=== PATIENT | female | born 1945 | race Caucasian/White ===

== ENCOUNTER 2020-11-22 09:41 | Outpatient (CLI) | payer MEDICARE, SELFPAY ==
--- NOTE | ~2020-11-22 | CT_ITS ---
EXAMINATION: CT sinus wo con DATE: 11/22/2020 10:09 INDICATION: Chronic sinusitis TECHNIQUE: Computed tomography (CT) of the paranasal sinuses was performed without contrast. Iterativ e reconstruction technique was employed. Exam dose: 263.70 mGy-cm total exam DLP. COMPARISON: None FINDINGS: There is minimal rightward bowing of the anterior nasal septum, minimal leftward bowing of the more posterior nasal septum. Mesha bullosa of right middle nasal turbinate. There is prominent soft tissue swelling of the nasal turbinates bilaterally. The ostiomeatal units are patent. Bilateral nasal antral windows are present. There is mild mucoperiosteal thickening of the lower portion of the left maxillary sinus. The paranas al sinuses otherwise are normally developed and aerated. The mastoid air cells are normally developed and aerated. Middle and inner ear apparatus appear unrem arkable bilaterally. IMPRESSION: Mesha bullosa of right middle nasal turbinate Prominent soft tissue swelling of the nasal turbinates bilaterally Bilateral nasal antral windows Mild mucoperiosteal thickening of the lower portion of the left maxillary sinus Reviewed, dictated and finalized at [facility]. Reviewed, dictated and finalized at location [facility]. IO DIRECTOR
== END 2020-11-22 09:42 | disposition home or self-care (01) ==
PROVIDERS: PCP Internal Medicine; Visit Provider Internal Medicine
DX: J32.9 Chronic sinusitis, unspecified (principal); R93.0 Abnormal findings on diagnostic imaging of skull and head, not elsewhere classified
CPT/HCPCS: 70486

== ENCOUNTER 2022-05-04 13:59 | Outpatient (CLI) | payer MEDICARE, SELFPAY ==
--- NOTE | ~2022-05-04 | XR_ITS ---
XR hip RT min 2V DATE: 05/04/2022 14:21 INDICATION: Right hip pain. No injury. TECHNIQUE: AP and lateral views COMPARISON: 11/19/2014 pelvis FINDINGS: There is prominent right hip joint space narrowing and spurring consistent with moderately severe right hip osteoarthritis. Osteopenia. No fracture or dislocation, avascular necrosis or bone destruction of the right hip is detected. IMPRESSION: Osteopenia Moderately severe right hip osteoarthritis Reviewed, dictated and finalized at location A.
== END 2022-05-04 14:00 | disposition home or self-care (01) ==
PROVIDERS: PCP Internal Medicine; Visit Provider Internal Medicine
DX: M16.11 Unilateral primary osteoarthritis, right hip (principal); M85.851 Other specified disorders of bone density and structure, right thigh
CPT/HCPCS: 73502

== ENCOUNTER 2023-09-23 12:45 | Outpatient (CLI) | payer MEDICARE, SELFPAY | END 2023-09-23 12:46 | disposition home or self-care (01) | LOC: ANHAUDIO 12:45 | PROVIDERS: PCP Internal Medicine; Visit Provider Internal Medicine | DX: H90.3 Sensorineural hearing loss, bilateral (principal) | CPT/HCPCS: 92557; 92567 ==

== ENCOUNTER 2023-12-26 14:08 | Outpatient (CLI) | payer MEDICARE, SELFPAY ==
--- NOTE | ~2023-12-26 | XR_ITS ---
EXAMINATION: XR hip BI wo pelvis DATE: 12/26/2023 15:55 INDICATION: Right hip pain. TECHNIQUE: 2 views of right hip and 2 views of left hip were obtained. COMPARISON: Right hip radiographs 05/04/2022 FINDINGS: There is a total left hip arthroplasty in near-anatomic alignment. No fracture. No peripros thetic lucency to suggest loosening or infection. There is heterotopic ossification near left hip. Th ere is severe right hip osteoarthritis. Osteitis pubis is noted. IMPRESSION: 1. Severe right hip osteoarthritis. 2. Total left hip arthroplasty in near-anatomic alignment. Reviewed, dictated and finalized at location E. ER
--- NOTE | ~2023-12-26 | XR_ITS ---
EXAMINATION: XR lumbar spine 2-3V DATE: 12/26/2023 15:55 INDICATION: Dorsalgia, unspecified. TECHNIQUE: 3 views of lumbar spine were obtained. COMPARISON: Lumbar spine radiographs 02/20/2019 FINDINGS: There is 35 degrees levoscoliosis of lumbar spine. There is 3 mm retrolisthesis of L2 on L3 and 5 mm retrolisthesis of L4 on L5. There is 5 mm anterolisthesis of L5 on S1. There are changes of posterior fusion procedure at L3-L4. There is interbody fusion at L3-L4. There is severely decreased disc height at L1-L2, L2-L3, L4-L5, and L5-S1 with endplate remodeling. There is multilevel severe f acet joint osteoarthritis. There is severe right hip osteoarthritis. There is a total left hip arthro plasty. IMPRESSION: 1. Severe lumbar spondylosis, stable from 02/20/2019. 2. Anterior and posterior fusion at L3-L4. 3. Lumbar levoscoliosis. Reviewed, dictated and finalized at location E. E ENGINEER
== END 2023-12-26 14:09 ==
PROVIDERS: Visit Provider Internal Medicine
DX: M54.30 Sciatica, unspecified side (principal); M47.896 Other spondylosis, lumbar region; Z98.1 Arthrodesis status; M16.11 Unilateral primary osteoarthritis, right hip
CPT/HCPCS: 72100; 73521

== ENCOUNTER 2024-07-31 09:30 | Inpatient (IN) | payer MEDICARE, SELFPAY ==
[2024-07-31] VITALS (9 sets, daily range): BP systolic 138–154; BP diastolic 54–94; PULSE 69–80; RESP 13–19; TEMP 36.2–36.9; O2SAT 94–100; BMI 35.2
--- NOTE | ~2024-07-31 | XR_ITS ---
XR chest 1V portable Ordering provider: Judit Lucas PA-C History: 79 years Female with . hyponatremia, recent COVID . Comparison: January 20, 2016 FINDINGS: MEDIASTINUM: The cardiac silhouette is slightly enlarged. Postoperative changes in the mediastinum. LUNGS: No infiltrates, effusions or pneumothorax. Fibrotic and emphysematous changes of the lungs. OTHER: No free air under the diaphragm. IMPRESSION: No acute cardiopulmonary pathology. Reviewed, dictated and finalized at location A.
--- NOTE | ~2024-07-31 | US_ITS ---
EXAMINATION: US venous doppler [facility] DATE: 08/01/2024 11:39 INDICATION: Lower limb edema. TECHNIQUE: Grayscale ultrasound images without and with compression and Doppler ultrasound images of the bilateral lower extremity veins were obtained. COMPARISON: None. FINDINGS: The visualized portions of right common femoral vein, femoral vein, popliteal vein, peroneal veins, p osterior tibial veins, and greater saphenous vein outflow are patent. There is thrombus in right prof unda femoral vein. The visualized portions of left common femoral vein, profunda femoral vein, femoral vein, popliteal v ein, peroneal veins, posterior tibial veins, and greater saphenous vein outflow are patent. IMPRESSION: 1. Deep vein thrombosis involving right profunda femoral vein. Reviewed, dictated and finalized at location A.
--- NOTE | 2024-07-31 09:37 | ECG_ITS ---
Test Date: 2024-07-31 10:15:13 Measurements Intervals [place] Rate: 71 P: 8 TN: 175 QRS: -52 QRSD: 153 T: 124 QT: 447 QTc: 489 Interpretive Statements SINUS RHYTHM LEFT AXIS DEVIATION [QRS AXIS < -30] LEFT BUNDLE BRANCH BLOCK [120+ ms QRS DURATION, 80+ ms Q/S IN V1/V2, 85+ ms R IN I/aVL/V5/V6] ABNORMAL ECG No previous ECG available for comparison Electronically Signed On 07-31-2024 12:36:01 CDT by Greg Adorno M.D.
--- NOTE | 2024-07-31 09:54 | ED.GENADULT ---
HPI - General Adult General Chief complaint: Recheck/Abnormal Lab/Rx <Kashif Mcdonald APRN - Last Filed: 07/31/24 11:02> Stated complaint: ABNORMAL LAB RESULTS <Kashif Mcdonald APRN - Last Filed: 07/31/24 11:02> Time Seen by Provider: 07/31/24 09:32 <Kashif Mcdonald APRN - Last Filed: 07/31/24 11:02> History of Present Illness HPI narrative: 79-year-old female presents with low sodium levels. Patient states she saw her primary care doctor yesterday and had labs done. Patient was called today to come to the ER for low sodium. Patient states she has had 3-4 weeks of nausea, increased confusion, elevated blood pressure, and has been more unsteady on her feet. Patient denies history of low sodium. Patient is on a diuretic but unsure of the name. Patient patient states she has loose stools since 2020. Patient denies chest pain, abdominal pain, no shortness. Patient states her legs have been more swollen than usual. Per lab results patient's sodium was 121 yesterday. <Kashif Mcdonald APRN - Last Filed: 07/31/24 11:02> Onset (ago): day(s) (1) <Kashif Mcdonald APRN - Last Filed: 07/31/24 11:02> Related Data Home medications: Home Medications Medication Instructions Recorded Confirmed Lactobacillus rhamnosus GG 10 1 cap PO DAILY 09/10/19 03/24/24 billion cell capsule (Culturelle) aspirin 81 mg tablet,delayed 81 mg PO DAILY 09/10/19 03/24/24 release (Aspir-Low) ssrqukjilkl-rmozhetxa-dpd C-Mn 500 cap PO 09/10/19 03/24/24 mg-400 mg capsule peg 400-propylene glycol 0.4 %-0.3 1 drop LEFT EYE BID PRN 04/04/20 03/24/24 % eye drops (Systane Ultra) vit C,E,zinc,copper-xghml3f 250 1 cap PO DAILY 04/04/20 03/24/24 mg-lutein 5 mg-zeaxanthin 1 mg capsule (Ocuvite Adult 50 Plus) multivitamin 1 tablet PO DAILY 04/27/20 03/24/24 Vitamin E 400 IU PO BID 07/06/21 03/24/24 acetaminophen 650 mg 650 mg PO DAILY 07/06/21 03/24/24 tablet,extended release ascorbic acid (vitamin C) 500 mg 500 mg PO DAILY 07/06/21 03/24/24 tablet calcium 600 mg (as 1 tablet PO DAILY 07/06/21 03/24/24 carbonate)-vitamin D3 5 mcg (200 unit) tablet guaifenesin 1,200 mg tablet, 1,200 mg PO BID 07/06/21 03/24/24 extended release 12 hr (Mucinex) magnesium 400mg-zinc 15mg PO .once daily 07/06/21 03/24/24 <Kashif Mcdonald APRN - Last Filed: 07/31/24 11:02> Allergies/adverse reactions: Allergies Allergy/AdvReac Type Severity Reaction Status Date / Time oxycodone Allergy Unknown HALLUCINATI Verified 03/24/24 15:16 ONS azithromycin AdvReac Severe NAUSEA Verified 03/24/24 15:16 azelastine AdvReac Mild Other Verified 03/24/24 15:16 diclofenac AdvReac Mild STOMACH Verified 03/24/24 15:16 UPSET erythromycin base AdvReac Mild UPSET Verified 03/24/24 15:16 STOMACH hydrochlorothiazide AdvReac Unknown Hypotension Verified 07/31/24 12:42 azithromycin Allergy Unknown Unknown Uncoded 03/24/24 15:16 diclofenac Allergy Unknown Unknown Uncoded 03/24/24 15:16 erythromycin base Allergy Unknown Unknown Uncoded 03/24/24 15:16 <Kashif Mcdonald APRN - Last Filed: 07/31/24 11:02> Review of Systems Review of Systems: A 10 system review of systems was completed on the patient and is negative except for what is stated in the HPI. Nursing and ancillary documentation was reviewed. Nausea, swelling in legs, weakness, <Kashif Mcdonald APRN - Last Filed: 07/31/24 11:02> [facility] Past Medical History Medical History: Medical History (Updated 07/31/24 @ 11:00 by Kashif Mcdonald APRN) Abnormal EKG Abnormal finding of blood chemistry Benign essential hypertension Blindness of right eye BMI 34.0-34.9,adult BMI 36.0-36.9,adult BMI 37.0-37.9, adult BMI 38.0-38.9,adult BMI 39.0-39.9,adult Body mass index (BMI) 40.0-44.9, adult Cataract Chronic low back pain Colon cancer screening Constipation Cyst of right breast Diarrhea Dizziness Dizziness DJD (degenerative joint disease), multiple sites DM
[2024-07-31] MEDS: SODIUM CHLORIDE 0.9% IV 1,000 ML 150 ML IV CONT (09:55)
[2024-07-31 10:08] LABS: Basophils Percent Auto 0.7 % (0.2-1.2); Eosinophils Absolute Auto 0.1 K/mm3 (0-0.3); Eosinophils Percent Auto 1.8 % (0-4.4); Hematocrit 40.5 % (37.0-47.0); Hemoglobin 13.5 g/dL (12.0-15.0); Immature Granulocyte Absolute 0.04 K/mm3 (0.00-0.031); Immature Granulocyte Percent A 0.7 % (0-0.5); Lymphocytes Absolute Auto 0.78 K/mm3 (0.9-3.2); Lymphocytes Percent Auto 13.9 % (18.3-44.2); Mean Corpuscular HGB Conc 33.3 g/dl (32-36); Mean Corpuscular Hemoglobin 29.5 pg (26-34); Mean Corpuscular Volume 88.6 fl (80-100); Mean Platelet Volume 9.2 fl (7.4-10.4); Monocytes Absolute Auto 0.5 K/mm3 (0.1-0.6); Monocytes Percent Auto 9.4 % (2.6-8.5); Neutrophils Absolute Auto 4.1 K/mm3 (1.3-6.7); Neutrophils Percent Auto 73.5 % (45.5-73.1); Platelet Count Result 257 k/mm3 (150-375); Red Blood Count 4.57 M/mm3 (4.2-5.4); White Blood Count 5.6 K/mm3 (4.5-10.0)
[2024-07-31 10:22] LABS: Alanine Aminotransferase 26 U/L (6-35); Albumin Level 4.5 g/dL (3.5-5.1); Alkaline Phosphatase 87 U/L (38-126); Anion Gap 11 mmol/L (4-12); Aspartate Amino Transferase 27 U/L (14-36); Bilirubin,Total 0.7 mg/dL (0.2-1.3); Blood Urea Nitrogen 17 mg/dL (7-17); Calcium 9.5 mg/dL (8.4-10.2); Carbon Dioxide 24 mmol/L (22-30); Chloride 87 mmol/L (98-107); Estimated Glomerular Filt Rate > 60; Glucose 104 mg/dL (65-110); Sodium 122 mmol/L (137-145)
[2024-07-31 10:23] LABS: Lipase 71 U/L (23-300); Magnesium 1.5 mg/dL (1.6-2.3)
[2024-07-31 10:34] LABS: Troponin I < 0.012 ng/mL (0.000-0.034)
[2024-07-31 11:33] LABS: Add Urine Microscopic? YES; Appearance Urine Clear (Clear); Bacteria Urine None Seen /hpf; Bilirubin Urine Negative (Negative); Blood Urine Negative (Negative); Color Urine Yellow (Yellow); Glucose Urine UA Negative (Negative); Ketones Urine Negative (Negative); Leukocyte Esterase Ur Negative LEU/UL (Negative); Nitrate Urine Negative (Negative); Protein Urine 1+ mg/dL (Negative); RBC Urine 0-2 /hpf (0-2); Specific Grav Ur 1.015 (1.001-1.035); Squamous Epithelial Cell Urine None Seen /hpf (Few); WBC Urine 0-5 /hpf (0-3)
--- NOTE | 2024-07-31 12:20 | ADMGEN ---
This patient, Marilyn Stone, was admitted to Medical Room 251-. Patient/family oriented to hospital policies and general routines including ID bracelet, bed and alarms, visiting hours, pain management, procedures, bathroom and other care routines, personal items, smoking policy, room service/diet, and visiting hours. Information on how to activate the Rapid Response Team has been discussed. Patient/Family are encouraged to report perceived risks to care and to ask questions if they do not understand what they are told or what they should do.
--- NOTE | 2024-07-31 12:40 | PM.IMHP ---
H&P: HPI History of Present Illness Date/Time: 07/31/24 12:40 Chief Complaint: Low sodium levels. Narrative: This is a very pleasant 79-year-old female with hypertension, dyslipidemia, type 2 diabetes mellitus, hypothyroidism, obstructive sleep apnea, gastroesophageal reflux disease, and osteoporosis who presented to the emergency department for evaluation of low sodium levels. The patient provides the following history. She had COVID in early May and feels that she has not gotten back to baseline. About a month later she developed sinusitis for which she took of cefuroxime and doxycycline which unfortunately came along with quite a bit of diarrhea. Her lower extremity edema has worsened and a couple of weeks ago her indapamide dose was doubled with some improvement in swelling although she has been getting up at night to urinate frequently. Unfortunately she still feels weak and fatigued and just not like herself. At time she has mild confusion although it is intermittent and without pattern. Her appetite has been good and she denies nausea and vomiting. Diarrhea has resolved. She has not had lightheadedness, dizziness, vertigo, fever, chills, sweats, sore throat, cough, chest pain, pleuritic pain, orthopnea, paroxysmal nocturnal dyspnea, palpitations, and calf pain. Yesterday she had routine labs and received a call today that she had to come to the ED as her sodium was 121. With further questioning she has no known history of hyponatremia however it looks like she has chronic hyponatremia in the low 130s. She recently had her indapamide dose increased as above but denies other medication changes. She drinks up to 36 oz of fluid a day but usually lasts. She denies alcohol use. No history of malignancy, cirrhosis, congestive heart failure, or lung disease. In the ED: Vital signs were stable on arrival. Labs were significant for sodium of 122, chloride 87, magnesium 1.5. EKG showed sinus rhythm with left axis deviation and chronic left bundle-branch block. She is being admitted in this setting for further treatment and evaluation. Review of Systems Review of Systems: 12 systems were reviewed and are negative except for as per HPI. [facility] Past Medical History Medical History Anxiety and depression Benign essential hypertension Blindness of right eye Chronic hyponatremia Chronic low back pain Degenerative joint disease Gastroesophageal reflux disease Hearing loss Hyperlipidemia Hypothyroidism Left bundle branch block Obstructive sleep apnea on CPAP On terminal carman drug therapy Osteoporosis Spinal stenosis Type 2 diabetes mellitus Vitamin D deficiency Surgical History Surgical History History of aortic valve replacement with tissue graft History of back surgery History of cataract extraction History of detached retina repair History of hand surgery History of left hip replacement History of partial thyroidectomy History of sinus surgery History of total left knee replacement Family History Family History Mother Diabetes mellitus Family history of arthritis Family history of congestive heart failure Hypertension Cerebrovascular accident Grandparent Family history of malignant neoplasm of breast Cerebrovascular accident Father Family history of malignant neoplasm of kidney Family history of arthritis Family history of lung cancer Grandparent Breast cancer Social History Social History (Updated 07/31/24 @ 22:58 by Judit Lucas PA-C) Social History: Healthcare power of superintendent production: Sandor Rueda ([phone]). Code status: Full code. Smoking status: Never smoker Second hand tobacco smoke exposure: No Alcohol intake: never Substance use: never Do You Feel Safe in your Home?: Yes Lack of Transportation: No Lack of Food: Nev
[2024-07-31 17:04] LABS: Sodium Urine Random 95 meq/L
[2024-07-31 17:14] LABS: Urea Random Urine 289 MG/DL
[2024-07-31 17:15] LABS: Creatinine Urine 28.9 mg/dL
[2024-07-31] MEDS: PREGABALIN (*CRX) 75 MG CAPSULE PO (17:23)
[2024-07-31] MEDS: CALCIUM/VITAMIN D 500 MG/5 MCG (200 I.U.) TABLET PO (17:23)
[2024-07-31 17:42] LABS: Glucose Point of Care 176 mg/dl (65-105)
[2024-07-31 20:06] LABS: Glucose Point of Care 92 mg/dl (65-105)
[2024-07-31] MEDS: MAGNESIUM SULF 2 GM/WATER 50ML 2 GM/50 ML BAG IVPB (20:36)
[2024-07-31] MEDS: ATORVASTATIN 10 MG TABLET BY MOUTH (20:42)
[2024-07-31] MEDS: guaiFENesin 12 HR 600 MG TABCR 1200 MG PO (20:42)
[2024-07-31] MEDS: CALCITONIN NASAL 200 UNITS/SPRAY 3.7 ML BOTTLE 1 SPRAY NASAL (20:44)
[2024-07-31] MEDS: FLUTICASONE PROPIONATE 0.05% NA SPR 16 GM BTL (*BKC) 2 SPRAY NASAL (20:45)
[2024-07-31 22:46] LABS: Magnesium 2.2 mg/dL (1.6-2.3)
[2024-07-31 23:59] LABS: Anion Gap 9 mmol/L (4-12); Blood Urea Nitrogen 15 mg/dL (7-17); Calcium 9.3 mg/dL (8.4-10.2); Carbon Dioxide 23 mmol/L (22-30); Chloride 90 mmol/L (98-107); Estimated CRCL calculation 58 ml/min; Estimated Glomerular Filt Rate > 60; Glucose 102 mg/dL (65-110); Potassium 4.1 mmol/L (3.4-5.0); Sodium 122 mmol/L (137-145)
[2024-08-01] VITALS (8 sets, daily range): BP systolic 117–155; BP diastolic 48–65; PULSE 66–74; RESP 16–18; TEMP 36.1–36.9; O2SAT 94–98
[2024-08-01 05:43] LABS: Anion Gap 7 mmol/L (4-12); Blood Urea Nitrogen 14 mg/dL (7-17); Calcium 9.6 mg/dL (8.4-10.2); Carbon Dioxide 25 mmol/L (22-30); Chloride 91 mmol/L (98-107); Estimated CRCL calculation 66 ml/min; Estimated Glomerular Filt Rate > 60; Glucose 101 mg/dL (65-110); Magnesium 1.8 mg/dL (1.6-2.3); Potassium 4.2 mmol/L (3.4-5.0); Sodium 123 mmol/L (137-145)
[2024-08-01] MEDS: LEVOTHYROXINE SODIUM 125 MCG TABLET BY MOUTH (06:02)
[2024-08-01 07:29] LABS: Glucose Point of Care 117 mg/dl (65-105)
[2024-08-01] MEDS: MULTIVITAMINS THERAPEUTIC TAB (*BKC) 1 TABLET PO (08:25)
[2024-08-01] MEDS: PREGABALIN (*CRX) 75 MG CAPSULE PO ×2 (08:25→16:02)
[2024-08-01] MEDS: OPTI-GEN TAB 1 TABLET PO (08:25)
[2024-08-01] MEDS: ASPIRIN 81 MG ENTERIC TABLET PO (08:25)
[2024-08-01] MEDS: ASCORBIC ACID 500 MG TABLET PO (08:25)
[2024-08-01] MEDS: ACIDOPHILUS/BULGARICUS CHEWABLE TABLET 1 TABLET BY MOUTH (08:25)
[2024-08-01] MEDS: CALCIUM/VITAMIN D 500 MG/5 MCG (200 I.U.) TABLET PO ×2 (08:25→16:02)
[2024-08-01] MEDS: MAGNESIUM OXIDE 400 MG TABLET PO (08:25)
[2024-08-01] MEDS: LOSARTAN POTASSIUM 100 MG TABLET PO (08:25)
[2024-08-01] MEDS: ENOXAPARIN 40 MG/0.4 ML SYRINGE SUB-Q (08:26)
[2024-08-01 12:19] LABS: Glucose Point of Care 104 mg/dl (65-105)
--- NOTE | 2024-08-01 13:44 | WPDPN ---
Progress Note: A&P Assessment and Plan (1) Hyponatremia: Code(s): E87.1 - Hypo-osmolality and hyponatremia Status: Acute (2) Hypomagnesemia: Code(s): E83.42 - Hypomagnesemia Status: Acute (3) Bilateral edema of lower extremity: Code(s): R60.0 - Localized edema Status: Acute (4) Benign essential hypertension: Code(s): I10 - Essential (primary) hypertension Status: Acute (5) Gastroesophageal reflux disease: Code(s): K21.9 - Gastro-esophageal reflux disease without esophagitis Status: Acute (6) Hypothyroidism: Code(s): E03.9 - Hypothyroidism, unspecified Status: Acute (7) Obstructive sleep apnea on CPAP: Code(s): G47.33 - Obstructive sleep apnea (adult) (pediatric) Status: Acute (8) Type 2 diabetes mellitus: Code(s): E11.9 - Type 2 diabetes mellitus without complications Status: Acute Plan The patient presented to the emergency department for evaluation after she was found to have low sodium level on labs as detailed in HPI. Labs, imaging, EKG, and all reports were personally reviewed. She has chronic, mild hyponatremia and it looks like her sodium typically runs in the low 130s. Risk factors for hyponatremia include medications (indapamide, esomeprazole) and medical conditions (hypothyroidism, diabetes). She appears euvolemic and is euglycemic at this time. Check urine sodium and urea, urine and serum osmolalities, and TSH. Hold IV fluids pending these investigations as I suspect it will correct by simply holding indapamide and esomeprazole. May need to consider fluid restriction depending on how the sodium trends. Magnesium is also low, possibly related to PPI, and will be replaced. She continues to have quite a bit of lower extremity swelling, in part from dependent edema and sedentary lifestyle. She was encouraged to elevate her legs above the heart as often as possible. Jeff hatfield ordered. Consider loop diuretic for edema once her sodium has improved. Echocardiogram ordered to assess cardiac function. Lower extremity venous ultrasounds have been ordered to rule out DVT. Blood pressures were reviewed and they have been running a bit high and will be monitored closely. CPAP will be provided for the patient to use while hospitalized. Initiate sliding scale insulin, Accu-Cheks, and hypoglycemic protocol. Recent hemoglobin A1c was 6.3%. Her home medications will be reviewed and resumed as appropriate. Findings and treatment plan were discussed with the patient. Questions were solicited and answered to satisfaction. The patient's medical management will be taken over by the hospitalist team in a.m. 79 y/o female admitted with hyponeatremia suspect 2/2 indapamide which was recently double due to lower extremities edema, patient is placed on fluid restriction and her sodium is trending up it is 123 today compare to 122 upon arrival, patient with c/o lower extremities edema concerning for CHF, cardiac ECHO showed preserved EF of 55%,and grade I diastolic dysfunction, patient is placed on fluids restriction may help with edema, also complaints Rt lower extremity swelling and pain, venous Doppler showed DVT involving right profunda femoral vein most likely due sedentary life patient is started on Eliquis Subjective Date/time seen: 08/01/24 13:44 Interval history: 79 y/o female admitted with hyponeatremia suspect 2/2 indapamide which was recently double due to lower extremities edema, patient is placed on fluid restriction and her sodium is trending up it is 123 today compare to 122 upon arrival, patient with c/o lower extremities edema concerning for CHF, cardiac ECHO showed preserved EF of 55%,and grade I diastolic dysfunction, patient is placed on fluids restriction may help with edema, also complaints Rt lower extremity swelling and pain, venous Doppler showed DVT involving right profunda femoral vein most likely due sedentary life patient is started on El
--- NOTE | 2024-08-01 14:47 | PCOTNOTE ---
Attempted OT evaluation. DVT found 08/01/24, will hold occupational therapy services till appropriate. Will follow.
--- NOTE | 2024-08-01 14:50 | PM.CNNEP ---
Assessment and Plan Assessment and plan (1) Hyponatremia: Code(s): E87.1 - Hypo-osmolality and hyponatremia Status: Acute Assessment and Plan: The patient has hyponatremia. This has been going off and on for many years. Things that cause hyponatremia include: Cancer. However if she had cancer for 15 years I think we would have known about this. 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 Can not see that she has had a CT scan of her head but she has no neurologic symptoms. Because the sodium is not coming up with stopping the indapamide we should get a CT brain. Pulmonary issues. Her chest x-ray is unremarkable and she has no pulmonary disease. Hormones. The TSH is okay. Will check a cortisol level. Pseudo hyponatremia from paraproteins. Will check an SPEP. Meds the patient is on omeprazole and indapamide both of which can lower the sodium. She says that she has not had any symptoms of GERD since being off the omeprazole this admission so I will just start Pepcid. Hopefully this will control her GERD. The patient was on indapamide. This may have led to the lower sodium. This has been discontinued. To treat this will stop the on omeprazole, and enhance fluid restriction [id number]. Will also add Lasix plus salt tabs to help bring the sodium level up. Will check a cortisol level and an SPEP. (2) Benign essential hypertension: Code(s): I10 - Essential (primary) hypertension Status: Acute Assessment and Plan: Blood pressure is under good control (3) Hyperlipidemia: Qualifiers: Hyperlipidemia type: mixed hyperlipidemia Qualified Code(s): E78.2 - Mixed hyperlipidemia Code(s): E78.5 - Hyperlipidemia, unspecified Status: Acute Assessment and Plan: The patient is on atorvastatin. Will check a total cholesterol (4) DM type 2 (diabetes mellitus, type 2): Qualifiers: Diabetes mellitus complication status: without complication Diabetes mellitus halfway insulin use: without vermin exterminator use Qualified Code(s): E11.9 - Type 2 diabetes mellitus without complications Code(s): E11.9 - Type 2 diabetes mellitus without complications Status: Acute Assessment and Plan: Management per hospitalists (5) SUE on CPAP: Code(s): G47.33 - Obstructive sleep apnea (adult) (pediatric); Z99.89 - Dependence on other enabling machines and devices Status: Acute Assessment and Plan: She uses a CPAP machine at home (6) GERD (gastroesophageal reflux disease): Qualifiers: Esophagitis presence: esophagitis presence not specified Qualified Code(s): K21.9 - Gastro-esophageal reflux disease without esophagitis Code(s): K21.9 - Gastro-esophageal reflux disease without esophagitis Status: Acute Assessment and Plan: Will change from omeprazole to Pepcid History of Present Illness Reason for Consult Consult date: 08/01/24 Chief Complaint Chief complaint: Hyponatremia History of Present Illness Narrative: Marilyn is a very pleasant 79-year-old lady who sees Dr. Tomlin in the office.. The patient had hyperlipidemia, GERD on omeprazole, chronic seasonal allergies, degenerative joint disease, hypothyroidism, diabetes, peripheral neuropathy. Patient also has chronic hyponatremia. If sodium is been low since 2008. At that time she had a very low sodium. She was in the emergency room and sodium was in 113-119 range. There are no notes describing how that was treated but she was discharged. Since then her sodium has ranged from the high 120s to low normal. She says that she was never aware of her low sodium and that she has never had an official workup. The patient denies any cancer. She has no lung disease. No history of strokes or brain tumors. She does take indapamide. She does not take narcotics, antidepressants, but does take omeprazole. Before February, her sodium was mildly low, twice in February it was a little bit lower and when she came into the
--- NOTE | 2024-08-01 15:09 | PCPTNOTE ---
attempted PT eval, according to pt's chart she has a recent DVT found today, waiting for 24 hours on blood thinners, will follow
[2024-08-01] MEDS: APIXABAN 5 MG TABLET 10 MG PO (16:02)
[2024-08-01] MEDS: SODIUM CHLORIDE 1 GM TABLET PO (16:02)
[2024-08-01] MEDS: FUROSEMIDE 20 MG TABLET PO (16:02)
[2024-08-01 17:45] LABS: Glucose Point of Care 94 mg/dl (65-105)
[2024-08-01 20:44] LABS: Glucose Point of Care 141 mg/dl (65-105)
[2024-08-01] MEDS: guaiFENesin 12 HR 600 MG TABCR 1200 MG PO (21:00)
[2024-08-01] MEDS: ATORVASTATIN 10 MG TABLET BY MOUTH (21:00)
[2024-08-01] MEDS: FAMOTIDINE 20 MG TABLET PO (21:00)
[2024-08-01] MEDS: CALCITONIN NASAL 200 UNITS/SPRAY 3.7 ML BOTTLE 1 SPRAY NASAL (21:01)
[2024-08-01] MEDS: FLUTICASONE PROPIONATE 0.05% NA SPR 16 GM BTL (*BKC) 2 SPRAY NASAL (21:03)
[2024-08-01 22:12] LABS: Thyroid Stimulating Hormone Reflex 0.522 uIU/mL (0.465-4.68)
--- NOTE | 2024-08-01 23:02 | ECHO_ITS ---
Patient Info Name: Marilyn Stone Age: 79 years : 1945 Gender: Female Ht: 62 in Wt: 210 lbs BSA: 2.09 m2 HR: 71 bpm BP: 151 / 58 mmHg Heart Rhythm: Sinus Rhythm Technical Quality: Good Exam Date: 08/01/2024 8:15 AM Exam Location: Echo Lab Patient Status: Inpatient Admit Date: 07/31/2024 Staff Ordering Physician: Judit Lucas PA-C Chronograph Operator: Marcus France RDCS Attending Provider: Tato Arroyo MD Referring Physician: Shayy VENTURA; Exam Type: CA echo doppler color flow Study Info Indications - EDEMA, HTN Complete two-dimensional, color flow and Doppler transthoracic echocardiogram is performed. Summary 1. Complete two-dimensional, color flow and Doppler transthoracic echocardiogram is performed. 2. Left ventricular systolic function is normal, estimated at 50-55%. 3. There is moderately increased left ventricular wall thickness. 4. The left ventricular diastolic function is grade I diastolic dysfunction. 5. There is mild tricuspid valve regurgitation. 6. Mild pulmonary hypertension, estimated pulmonary arterial systolic pressure is 44 mmHg. 7. Bioprosthetic aortica valve. No aortic regurgitation. Mean gradient across aortic valve 12 mmHg. DVI 0.4. Left Ventricle Left ventricular chamber dimension is normal. Left ventricular systolic function is normal, estimated at 50-55%. There is moderately increased left ventricular wall thickness. Left ventricular septal wall motion is normal. The left ventricular diastolic function is grade I diastolic dysfunction. Right Ventricle Right ventricular chamber dimension is normal. Right ventricular systolic function is normal. Left Atria Left atrial chamber dimension is normal. Right Atria Right atrial chamber dimension is normal. Aortic Valve The not well visualized prosthetic aortic valve is not well visualized. There is no sclerosis of the not well visualized prosthetic aortic valve leaflets. There is no regurgitation of the not well visualized prosthetic aortic valve. Pulmonic Valve The pulmonic valve is normal. There is no pulmonic valve stenosis. There is no pulmonic regurgitation. Mitral Valve The mitral valve has normal leaflets. There is no mitral valve stenosis. There is no mitral valve regurgitation. The mitral valve annulus is mildly calcified. Tricuspid Valve The tricuspid valve leaflets are normal. There is no significant tricuspid valve stenosis. There is mild tricuspid valve regurgitation. Mild pulmonary hypertension, estimated pulmonary arterial systolic pressure is 44 mmHg. Pericardium/Pleural The pericardium appears normal. There is no pericardial effusion. Aorta The aortic root size at the sinus of Valsalva is normal. The prox ascending aorta size is normal. Left Ventricular Outflow Tract Name Value Normal LVOT 2D LVOT Diameter 1.8 cm LVOT Doppler LVOT Peak Gradient 2 mmHg LVOT Mean Gradient 2 mmHg LVOT VTI 19 cm LVOT VTI/AV VTI Ratio 0.4 LVOT Stroke Volume 50 ml LVOT CO 3.5 l/min LVOT
[2024-08-02] VITALS (9 sets, daily range): BP systolic 129–166; BP diastolic 47–99; PULSE 58–78; RESP 14–22; TEMP 36.2–36.7; O2SAT 93–98
[2024-08-02] MEDS: LEVOTHYROXINE SODIUM 125 MCG TABLET BY MOUTH (06:07)
[2024-08-02 06:09] LABS: Hematocrit 36.9 % (37.0-47.0); Hemoglobin 12.1 g/dL (12.0-15.0); Mean Corpuscular HGB Conc 32.8 g/dl (32-36); Mean Corpuscular Hemoglobin 29.2 pg (26-34); Mean Corpuscular Volume 88.9 fl (80-100); Mean Platelet Volume 9.6 fl (7.4-10.4); Platelet Count Result 225 k/mm3 (150-375); Red Blood Count 4.15 M/mm3 (4.2-5.4); Red Cell Distribution Width 14.2 % (11.5-14.5); White Blood Count 5.8 K/mm3 (4.5-10.0)
[2024-08-02 06:13] LABS: Albumin Level 3.8 g/dL (3.5-5.1); Anion Gap 8 mmol/L (4-12); Blood Urea Nitrogen 20 mg/dL (7-17); Calcium 9.5 mg/dL (8.4-10.2); Carbon Dioxide 24 mmol/L (22-30); Chloride 92 mmol/L (98-107); Estimated CRCL calculation 51 ml/min; Estimated Glomerular Filt Rate > 60; Glucose 99 mg/dL (65-110); Magnesium 1.6 mg/dL (1.6-2.3); Phosphorus 3.9 mg/dL (2.5-4.5); Potassium 4.2 mmol/L (3.4-5.0); Sodium 124 mmol/L (137-145)
--- NOTE | 2024-08-02 08:11 | PM.PNNEP ---
Progress Note: A&P Assessment and Plan (1) Hyponatremia: Code(s): E87.1 - Hypo-osmolality and hyponatremia Status: Acute Assessment and Plan: The patient has hyponatremia. This has been going off and on for many years. Serum and urine osmolality pending. SPEP pending. Cortisol level was only 10.6. Will check a Cortrosyn stim test. Things that cause hyponatremia include: Cancer. However if she had cancer for 15 years I think we would have known about this. 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 Can not see that she has had a CT scan of her head but she has no neurologic symptoms. Because the sodium is not coming up with stopping the indapamide we should get a CT brain. Pulmonary issues. Her chest x-ray is unremarkable and she has no pulmonary disease. Hormones. The TSH is okay. Cortisol level a little low. Check a Cortrosyn stim test. Pseudo hyponatremia from paraproteins. SPEP pending Meds the patient is on omeprazole and indapamide both of which can lower the sodium. These have both been discontinued.. Currently the patient is on fluid restriction of 1200cc, Lasix 20mg twice a day and sodium chloride 1g twice a day. Sodium level is up a little bit to 124. Will continue the same dose. Check the Cortrosyn stim test. Check a sodium at 4:00 p.m. and in the morning. Assuming a Cortrosyn stim test is negative, if the sodium still does not move very much by tomorrow then consider around 3% saline? (2) Benign essential hypertension: Code(s): I10 - Essential (primary) hypertension Status: Acute Assessment and Plan: Systolic blood pressure running in the 120s to 150s. Add a small dose of amlodipine (3) Hyperlipidemia: Qualifiers: Hyperlipidemia type: mixed hyperlipidemia Qualified Code(s): E78.2 - Mixed hyperlipidemia Code(s): E78.5 - Hyperlipidemia, unspecified Status: Acute Assessment and Plan: The patient is on atorvastatin. Will check a total cholesterol (4) DM type 2 (diabetes mellitus, type 2): Qualifiers: Diabetes mellitus halfway insulin use: without halfway use Diabetes mellitus complication status: without complication Qualified Code(s): E11.9 - Type 2 diabetes mellitus without complications Code(s): E11.9 - Type 2 diabetes mellitus without complications Status: Acute Assessment and Plan: Management per hospitalists (5) SUE on CPAP: Code(s): G47.33 - Obstructive sleep apnea (adult) (pediatric); Z99.89 - Dependence on other enabling machines and devices Status: Acute Assessment and Plan: She uses a CPAP machine at home (6) GERD (gastroesophageal reflux disease): Qualifiers: Esophagitis presence: esophagitis presence not specified Qualified Code(s): K21.9 - Gastro-esophageal reflux disease without esophagitis Code(s): K21.9 - Gastro-esophageal reflux disease without esophagitis Status: Acute Assessment and Plan: Will change from omeprazole to Pepcid Subjective Date/time seen: 08/02/24 08:11 Interval history: Patient feels okay. Sitting up in a chair. No chest pain or shortness of breath Review of Systems Cardiovascular: Cardiovascular: Reports no additional cardiovascular complaints Respiratory: Respiratory: Reports no additional respiratory complaints Gastrointestinal: Gastrointestinal: Reports no additional gastrointestinal complaints Genitourinary: Genitourinary: Reports no additional female genitourinary complaints Exam Narrative: WDWN in NAD skin no rash head ncat lungs clear cor reg no rub abd BS+ nontender and soft ext 1+ edema on the right and trace edema on the left. Objective Data Vital Signs Vital Signs: Vital Signs - 24 hr 08/01/24 08:47 08/01/24 12:00 08/01/24 16:00 Temperature 97.8 F 97 F L Pulse Rate 70 74 Respiratory Rate 16 16 Blood Pressure 128/52 L 155/65 H Pulse Oximetry 94 98 96 Oxygen Delivery Room Air
[2024-08-02 08:13] LABS: Glucose Point of Care 102 mg/dl (65-105)
[2024-08-02] MEDS: ACIDOPHILUS/BULGARICUS CHEWABLE TABLET 1 TABLET BY MOUTH (08:39)
[2024-08-02] MEDS: ASCORBIC ACID 500 MG TABLET PO (08:39)
[2024-08-02] MEDS: ASPIRIN 81 MG ENTERIC TABLET PO (08:39)
[2024-08-02] MEDS: APIXABAN 5 MG TABLET 10 MG PO ×2 (08:39→20:29)
[2024-08-02] MEDS: LOSARTAN POTASSIUM 100 MG TABLET PO (08:40)
[2024-08-02] MEDS: MULTIVITAMINS THERAPEUTIC TAB (*BKC) 1 TABLET PO (08:40)
[2024-08-02] MEDS: FUROSEMIDE 20 MG TABLET PO ×2 (08:40→17:01)
[2024-08-02] MEDS: PREGABALIN (*CRX) 75 MG CAPSULE PO ×2 (08:40→16:59)
[2024-08-02] MEDS: MAGNESIUM OXIDE 400 MG TABLET PO (08:40)
[2024-08-02] MEDS: OPTI-GEN TAB 1 TABLET PO (08:40)
[2024-08-02] MEDS: CALCIUM/VITAMIN D 500 MG/5 MCG (200 I.U.) TABLET PO ×2 (08:40→16:58)
[2024-08-02] MEDS: FAMOTIDINE 20 MG TABLET PO ×2 (08:40→20:29)
[2024-08-02] MEDS: SODIUM CHLORIDE 1 GM TABLET PO ×2 (08:40→17:01)
[2024-08-02] MEDS: amLODIPine BESYLATE 2.5 MG TABLET PO (08:46)
[2024-08-02] MEDS: COSYNTROPIN 0.25 MG/ML VIAL IV PUSH (09:14)
[2024-08-02 09:26] LABS: Cortisol Baseline 9.26 ug/dL
[2024-08-02 12:03] LABS: Glucose Point of Care 150 mg/dl (65-105)
--- NOTE | 2024-08-02 14:24 | WPDPN ---
Progress Note: A&P Assessment and Plan (1) Hyponatremia: Code(s): E87.1 - Hypo-osmolality and hyponatremia Status: Acute (2) Hypomagnesemia: Code(s): E83.42 - Hypomagnesemia Status: Acute (3) Bilateral edema of lower extremity: Code(s): R60.0 - Localized edema Status: Acute (4) Benign essential hypertension: Code(s): I10 - Essential (primary) hypertension Status: Acute (5) Gastroesophageal reflux disease: Code(s): K21.9 - Gastro-esophageal reflux disease without esophagitis Status: Acute (6) Hypothyroidism: Code(s): E03.9 - Hypothyroidism, unspecified Status: Acute (7) Obstructive sleep apnea on CPAP: Code(s): G47.33 - Obstructive sleep apnea (adult) (pediatric) Status: Acute (8) Type 2 diabetes mellitus: Code(s): E11.9 - Type 2 diabetes mellitus without complications Status: Acute Plan The patient presented to the emergency department for evaluation after she was found to have low sodium level on labs as detailed in HPI. Labs, imaging, EKG, and all reports were personally reviewed. She has chronic, mild hyponatremia and it looks like her sodium typically runs in the low 130s. Risk factors for hyponatremia include medications (indapamide, esomeprazole) and medical conditions (hypothyroidism, diabetes). She appears euvolemic and is euglycemic at this time. Check urine sodium and urea, urine and serum osmolalities, and TSH. Hold IV fluids pending these investigations as I suspect it will correct by simply holding indapamide and esomeprazole. May need to consider fluid restriction depending on how the sodium trends. Magnesium is also low, possibly related to PPI, and will be replaced. She continues to have quite a bit of lower extremity swelling, in part from dependent edema and sedentary lifestyle. She was encouraged to elevate her legs above the heart as often as possible. Jeff hatfield ordered. Consider loop diuretic for edema once her sodium has improved. Echocardiogram ordered to assess cardiac function. Lower extremity venous ultrasounds have been ordered to rule out DVT. Blood pressures were reviewed and they have been running a bit high and will be monitored closely. CPAP will be provided for the patient to use while hospitalized. Initiate sliding scale insulin, Accu-Cheks, and hypoglycemic protocol. Recent hemoglobin A1c was 6.3%. Her home medications will be reviewed and resumed as appropriate. Findings and treatment plan were discussed with the patient. Questions were solicited and answered to satisfaction. The patient's medical management will be taken over by the hospitalist team in a.m. 79 y/o female admitted with hyponeatremia suspect 2/2 indapamide which was recently double due to lower extremities edema, patient is placed on fluid restriction and her sodium is trending up it is 124 today compare to 122 upon arrival, patient with c/o lower extremities edema concerning for CHF, cardiac ECHO showed preserved LV function with EF of 55%,and grade I diastolic dysfunction, patient is placed on fluids restriction may help with edema, also complained of Rt lower extremity swelling and pain, venous Doppler showed DVT involving right profunda femoral vein most likely due sedentary life patient is started on Eliquis Subjective Date/time seen: 08/02/24 14:24 Interval history: 79 y/o female admitted with hyponeatremia suspect 2/2 indapamide which was recently double due to lower extremities edema, patient is placed on fluid restriction and her sodium is trending up it is 124 today compare to 122 upon arrival, patient with c/o lower extremities edema concerning for CHF, cardiac ECHO showed preserved LV function with EF of 55%,and grade I diastolic dysfunction, patient is placed on fluids restriction may help with edema, also complained of Rt lower extremity swelling and pain, venous Doppler showed DVT involving right profunda femoral vein most likely due
[2024-08-02 16:23] LABS: Anion Gap 11 mmol/L (4-12); Blood Urea Nitrogen 19 mg/dL (7-17); Calcium 9.8 mg/dL (8.4-10.2); Carbon Dioxide 23 mmol/L (22-30); Chloride 91 mmol/L (98-107); Estimated CRCL calculation 58 ml/min; Estimated Glomerular Filt Rate > 60; Glucose 201 mg/dL (65-110); Potassium 4.2 mmol/L (3.4-5.0); Sodium 125 mmol/L (137-145)
[2024-08-02 17:24] LABS: Glucose Point of Care 143 mg/dl (65-105)
[2024-08-02] MEDS: FLUTICASONE PROPIONATE 0.05% NA SPR 16 GM BTL (*BKC) 2 SPRAY NASAL (20:28)
[2024-08-02] MEDS: CALCITONIN NASAL 200 UNITS/SPRAY 3.7 ML BOTTLE 1 SPRAY NASAL (20:28)
[2024-08-02] MEDS: ATORVASTATIN 10 MG TABLET BY MOUTH (20:29)
[2024-08-02] MEDS: guaiFENesin 12 HR 600 MG TABCR 1200 MG PO (20:29)
[2024-08-02 20:37] LABS: Glucose Point of Care 160 mg/dl (65-105)
[2024-08-03 02:10] VITALS: PULSE 66; RESP 16; O2SAT 96
[2024-08-03 04:00] VITALS: BP 162/91; PULSE 73; RESP 20; TEMP 36.4; O2SAT 99
[2024-08-03] MEDS: LEVOTHYROXINE SODIUM 125 MCG TABLET BY MOUTH (05:49)
[2024-08-03 06:26] LABS: Hematocrit 35.2 % (37.0-47.0); Hemoglobin 11.6 g/dL (12.0-15.0); Mean Corpuscular Hemoglobin 29.4 pg (26-34); Mean Corpuscular Volume 89.3 fl (80-100); Mean Platelet Volume 9.3 fl (7.4-10.4); Platelet Count Result 224 k/mm3 (150-375); Red Blood Count 3.94 M/mm3 (4.2-5.4); Red Cell Distribution Width 14.2 % (11.5-14.5); White Blood Count 6.7 K/mm3 (4.5-10.0)
[2024-08-03 06:44] LABS: Albumin Level 3.8 g/dL (3.5-5.1); Anion Gap 9 mmol/L (4-12); Blood Urea Nitrogen 18 mg/dL (7-17); Calcium 9.6 mg/dL (8.4-10.2); Carbon Dioxide 23 mmol/L (22-30); Chloride 94 mmol/L (98-107); Estimated CRCL calculation 59 ml/min; Estimated Glomerular Filt Rate > 60; Glucose 100 mg/dL (65-110); Magnesium 1.6 mg/dL (1.6-2.3); Potassium 3.9 mmol/L (3.4-5.0); Sodium 126 mmol/L (137-145)
[2024-08-03 06:46] LABS: Cholesterol 142 mg/dL (0-200)
[2024-08-03 08:06] LABS: Glucose Point of Care 97 mg/dl (65-105)
[2024-08-03 08:16] VITALS: BP 154/59; PULSE 69; RESP 98; TEMP 36.4; O2SAT 98
[2024-08-03] MEDS: ACIDOPHILUS/BULGARICUS CHEWABLE TABLET 1 TABLET BY MOUTH (08:21)
[2024-08-03] MEDS: amLODIPine BESYLATE 2.5 MG TABLET PO (08:22)
[2024-08-03] MEDS: APIXABAN 5 MG TABLET 10 MG PO (08:22)
[2024-08-03] MEDS: MULTIVITAMINS THERAPEUTIC TAB (*BKC) 1 TABLET PO (08:23)
[2024-08-03] MEDS: CALCIUM/VITAMIN D 500 MG/5 MCG (200 I.U.) TABLET PO ×2 (08:23→17:32)
[2024-08-03] MEDS: FUROSEMIDE 20 MG TABLET PO ×2 (08:23→17:34)
[2024-08-03] MEDS: FAMOTIDINE 20 MG TABLET PO (08:23)
[2024-08-03] MEDS: ASCORBIC ACID 500 MG TABLET PO (08:23)
[2024-08-03] MEDS: ASPIRIN 81 MG ENTERIC TABLET PO (08:23)
[2024-08-03] MEDS: LOSARTAN POTASSIUM 100 MG TABLET PO (08:23)
[2024-08-03] MEDS: OPTI-GEN TAB 1 TABLET PO (08:24)
[2024-08-03] MEDS: PREGABALIN (*CRX) 75 MG CAPSULE PO ×2 (08:24→17:32)
[2024-08-03] MEDS: MAGNESIUM OXIDE 400 MG TABLET PO (08:24)
[2024-08-03] MEDS: SODIUM CHLORIDE 1 GM TABLET PO ×2 (08:24→17:32)
[2024-08-03 11:44] LABS: Glucose Point of Care 122 mg/dl (65-105)
--- NOTE | 2024-08-03 12:14 | PM.PNNEP ---
Progress Note: A&P Assessment and Plan (1) Hyponatremia: Code(s): E87.1 - Hypo-osmolality and hyponatremia Status: Acute Assessment and Plan: acute on chronic hyponatremia has been present for several years - present for as long as 2018 if not longer evaluation to date noted: TSH okay cortisol low but adequate stim test SPEP/UPEP pending serum/urine osmo pending no evidence of malignancy no LITIGATION MANAGER issues (consider CT of brain) CXR negative (no pulmonary issues) holding PPI and indapamide on fluid restriction, salt tabs, and lasix follow trend of repeat sodium levels (2) Benign essential hypertension: Code(s): I10 - Essential (primary) hypertension Status: Chronic Assessment and Plan: reasonable control follow trend of hemodynamics (3) GERD (gastroesophageal reflux disease): Qualifiers: Esophagitis presence: esophagitis presence not specified Qualified Code(s): K21.9 - Gastro-esophageal reflux disease without esophagitis Code(s): K21.9 - Gastro-esophageal reflux disease without esophagitis Status: Acute Assessment and Plan: changed omeprazole to Pepcid follow symptoms (4) DM type 2 (diabetes mellitus, type 2): Qualifiers: Diabetes mellitus [facility] insulin use: without terminal press operator use Diabetes mellitus complication status: without complication Qualified Code(s): E11.9 - Type 2 diabetes mellitus without complications Code(s): E11.9 - Type 2 diabetes mellitus without complications Status: Chronic Assessment and Plan: follow accu-cheks glycemic control per hospitalists Will continue to follow. Subjective Date/time seen: 08/03/24 12:14 Interval history: Follow-up for acute on chronic hyponatremia. Chart reviewed -- assuming care from Dr. Cr; sodium appears to be improving with current interventions; no apparent distress noted at the time of my visit; no issues/events overnight or earlier this morning; asking me about possible discharge. Exam Narrative: General: elderly but WD/WN female in NAD Heart: normal S1 and S2; no rub Lungs: clear to auscultation Abdomen: soft, nontender, nondistended, positive bowel sounds Extremities: no cyanosis or clubbing; trace - 1+ edema Skin: warm and dry Objective Data Vital Signs Vital Signs: Vital Signs Temp Pulse Resp BP Pulse Ox O2 Del Method 08/03/24 09:56 Room Air 08/03/24 08:16 97.5 F L 69 98 H 154/59 H 98 08/03/24 02:10 66 16 96 Autopap 08/03/24 04:00 97.5 F L 73 20 162/91 H 99 08/02/24 23:59 98.0 F 58 L 16 166/74 H 96 08/02/24 21:15 64 15 94 Autopap 08/02/24 20:00 98.1 F 75 18 129/99 H 98 08/02/24 20:30 98 Room Air 08/02/24 14:37 Room Air Intake/Output Intake/Output: Intake & Output 07/31/24 08/01/24 08/02/24 08/03/24 23:59 23:59 23:59 23:59 Intake Total 954 920 700 120 Output Total 800 200 Balance 954 120 500 120 Meds/Results Medications: Active Medications Generic Name Dose Route Start Last Admin Trade Name Freq PRN Reason Stop Dose Admin Acetaminophen 650 mg 07/31/24 13:29 Acetaminophen 325 Mg Tablet PO BID PRN Pain Rated 1-3 Amlodipine Besylate 2.5 mg 08/02/24 09:00 08/03/24 08:22 Amlodipine Besylate 2.5 Mg Tablet PO 2.5 mg QAM BERNY Administration Apixaban 10 mg 08/01/24 17:00 08/03/24 08:22 Apixaban 5 Mg Tablet PO 08/08/24 09:01 10 mg Q12HR BERNY Administration Apixaban 5 mg 08/08/24 21:00 Apixaban 5 Mg Tablet PO Q12HR BERNY Artificial Tears 1 drop 07/31/24 14:07 Artificial Tears Ophth Soln 15 Ml Bottle LEFT EYE BID PRN Dry Eye(s) Ascorbic Acid 500 mg 08/01/24 09:00 08/03/24 08:23 Ascorbic Acid 500 Mg Tablet PO 500 mg DAILY BERNY Administration Aspirin 81 mg 08/01/24 09:00 08/03/24 08:23 Aspirin 81 Mg Enteric Tablet PO 81 mg DAILY
--- NOTE | 2024-08-03 12:14 | P.PNNP_ITS ---
Progress Note: A&P Assessment and Plan (1) Hyponatremia: Code(s): E87.1 - Hypo-osmolality and hyponatremia Status: Acute Assessment and Plan: * acute on chronic * hyponatremia has been present for several years - present for as long as 2018 if not longer * evaluation to date noted: * TSH okay * cortisol low but adequate stim test * SPEP/UPEP pending * serum/urine osmo pending * no evidence of malignancy * no ELECTRICAL TESTER issues (consider CT of brain) * CXR negative (no pulmonary issues) * holding PPI and indapamide * on fluid restriction, salt tabs, and lasix * follow trend of repeat sodium levels (2) Benign essential hypertension: Code(s): I10 - Essential (primary) hypertension Status: Chronic Assessment and Plan: * reasonable control * follow trend of hemodynamics (3) GERD (gastroesophageal reflux disease): Qualifiers: Esophagitis presence: esophagitis presence not specified Qualified Code(s): K21.9 - Gastro-esophageal reflux disease without esophagitis Code(s): K21.9 - Gastro-esophageal reflux disease without esophagitis Status: Acute Assessment and Plan: * changed omeprazole to Pepcid * follow symptoms (4) DM type 2 (diabetes mellitus, type 2): Qualifiers: Diabetes mellitus [facility] insulin use: without keno terminal operator use Diabetes mellitus complication status: without complication Qualified Code(s): E11.9 - Type 2 diabetes mellitus without complications Code(s): E11.9 - Type 2 diabetes mellitus without complications Status: Chronic Assessment and Plan: * follow accu-cheks * glycemic control per hospitalists Will continue to follow. Subjective Date/time seen: 08/03/24 12:14 Interval history: Follow-up for acute on chronic hyponatremia. Chart reviewed -- assuming care from Dr. Cr; sodium appears to be improving with current interventions; no apparent distress noted at the time of my visit; no issues/events overnight or earlier this morning; asking me about possible discharge. Exam Narrative: General: elderly but WD/WN female in NAD Heart: normal S1 and S2; no rub Lungs: clear to auscultation Abdomen: soft, nontender, nondistended, positive bowel sounds Extremities: no cyanosis or clubbing; trace - 1+ edema Skin: warm and dry Objective Data Vital Signs Vital Signs: Vital Signs Temp Pulse Resp BP Pulse Ox O2 Del Method 08/03/24 09:56 Room Air 08/03/24 08:16 97.5 F L 69 98 H 154/59 H 98 08/03/24 02:10 66 16 96 Autopap 08/03/24 04:00 97.5 F L 73 20 162/91 H 99 08/02/24 23:59 98.0 F 58 L 16 166/74 H 96 08/02/24 21:15 64 15 94 Autopap 08/02/24 20:00 98.1 F 75 18 129/99 H 98 08/02/24 20:30 98 Room Air 08/02/24 14:37 Room Air Intake/Output Intake/Output: Intake & Output 07/31/24 08/01/24 08/02/24 08/03/24 23:59 23:59 23:59 23:59 Intake Total 954 920 700 120 Output Total 800 200 Balance 954 120 500 120 Meds/Results Medications: Active Medications Generic Name Dose Route Start Last Admin Trade Name Freq PRN Reason Stop Dose Admin Acetaminophen 6
[2024-08-03 13:59] LABS: Osmolality, Urine 315 mOsm/kg (50-1200)
[2024-08-03 14:00] VITALS: BP 148/66; PULSE 79; RESP 16; TEMP 36.3; O2SAT 98
--- NOTE | 2024-08-03 15:19 | PM.DS ---
DS: Admitting Diagnosis Discharge Date 08/03/24 Admitting Diagnosis Low sodium levels. DS: Discharge Diagnosis Discharge Diagnosis (1) Low serum sodium: Code(s): R79.89 - Other specified abnormal findings of blood chemistry Status: Acute (2) Hyponatremia: Code(s): E87.1 - Hypo-osmolality and hyponatremia Status: Acute (3) Benign essential hypertension: Code(s): I10 - Essential (primary) hypertension Status: Chronic (4) Hypothyroidism (acquired): Code(s): E03.9 - Hypothyroidism, unspecified Status: Acute (5) Bilateral edema of lower extremity: Code(s): R60.0 - Localized edema Status: Acute (6) Hypomagnesemia: Code(s): E83.42 - Hypomagnesemia Status: Acute (7) Gastroesophageal reflux disease: Code(s): K21.9 - Gastro-esophageal reflux disease without esophagitis Status: Acute (8) Hypothyroidism: Code(s): E03.9 - Hypothyroidism, unspecified Status: Acute DS: Summary Hospital Course Hospital Course: The patient presented to the emergency department for evaluation after she was found to have low sodium level on labs as detailed in HPI. Labs, imaging, EKG, and all reports were personally reviewed. She has chronic, mild hyponatremia and it looks like her sodium typically runs in the low 130s. Risk factors for hyponatremia include medications (indapamide, esomeprazole) and medical conditions (hypothyroidism, diabetes). She appears euvolemic and is euglycemic at this time. Check urine sodium and urea, urine and serum osmolalities, and TSH. Hold IV fluids pending these investigations as I suspect it will correct by simply holding indapamide and esomeprazole. May need to consider fluid restriction depending on how the sodium trends. Magnesium is also low, possibly related to PPI, and will be replaced. She continues to have quite a bit of lower extremity swelling, in part from dependent edema and sedentary lifestyle. She was encouraged to elevate her legs above the heart as often as possible. Jeff hatfield ordered. Consider loop diuretic for edema once her sodium has improved. Echocardiogram ordered to assess cardiac function. Lower extremity venous ultrasounds have been ordered to rule out DVT. Blood pressures were reviewed and they have been running a bit high and will be monitored closely. CPAP will be provided for the patient to use while hospitalized. Initiate sliding scale insulin, Accu-Cheks, and hypoglycemic protocol. Recent hemoglobin A1c was 6.3%. Her home medications will be reviewed and resumed as appropriate. Findings and treatment plan were discussed with the patient. Questions were solicited and answered to satisfaction. The patient's medical management will be taken over by the hospitalist team in a.m. 79 y/o female admitted with hyponeatremia suspect 2/2 indapamide which was recently double due to lower extremities edema, patient is placed on fluid restriction and her sodium is trending up it is 124 today compare to 122 upon arrival, patient with c/o lower extremities edema concerning for CHF, cardiac ECHO showed preserved LV function with EF of 55%,and grade I diastolic dysfunction, patient is placed on fluids restriction may help with edema, also complained of Rt lower extremity swelling and pain, venous Doppler showed DVT involving right profunda femoral vein most likely due sedentary life patient is started on Eliquis, today patient sodium is trending up, discuss with Dr. Longo, discharge the patient today and repeat BMP in and follow up in the clinic in 1 week. Time Spent with Patient Time attestation: Total time spent providing and/or coordinating discharge services: Exam Narrative: Morbidly obese Patient is comfortable, NAD HEENT: eyes are clear and none icteric LUNGS:CTA HEART: RR S1S2 ABD: Distended Lower extremities: B/L edema SKIN: nonjaundiced Neuro: grossly intact. DS: Data Data Completed and Pending L
[2024-08-03 16:39] LABS: Glucose Point of Care 106 mg/dl (65-105)
[2024-08-04 03:03] LABS: Protein, Total 6.4 g/dL (6.1-8.1)
[2024-08-04 12:58] LABS: Albumin 3.8 g/dL (3.8-4.8); Alpha 1 Globulin 0.3 g/dL (0.2-0.3); Alpha 2 Globulin 0.7 g/dL (0.5-0.9); Beta 1 Globulin 0.5 g/dL (0.4-0.6); Gamma Globulin 0.9 g/dL (0.8-1.7)
== END 2024-08-03 19:03 | disposition home or self-care (01) | DRG 641 ==
LOC: ANHED 11:00 → ANH2MED 12:09
PROVIDERS: Internal Medicine Nephrology; Physician Assistant; Admitting Provider General Practice; Emergency Provider Nurse Practitioner Family; PCP Internal Medicine; Visit Provider Family Medicine
DX: E87.1 Hypo-osmolality and hyponatremia (principal); I82.411 Acute embolism and thrombosis of right femoral vein; T46.5X5A Adverse effect of other antihypertensive drugs, initial encounter; I10 Essential (primary) hypertension; M15.9 Polyosteoarthritis, unspecified; E11.9 Type 2 diabetes mellitus without complications; K21.9 Gastro-esophageal reflux disease without esophagitis; E78.5 Hyperlipidemia, unspecified; E83.42 Hypomagnesemia; E03.9 Hypothyroidism, unspecified; I44.7 Left bundle-branch block, unspecified; E11.42 Type 2 diabetes mellitus with diabetic polyneuropathy; G47.33 Obstructive sleep apnea (adult) (pediatric); F41.8 Other specified anxiety disorders; E66.01 Morbid (severe) obesity due to excess calories; Z68.36 Body mass index [BMI] 36.0-36.9, adult; M81.0 Age-related osteoporosis without current pathological fracture; M48.00 Spinal stenosis, site unspecified; Z96.642 Presence of left artificial hip joint; Z96.652 Presence of left artificial knee joint; Z95.2 Presence of prosthetic heart valve
CPT/HCPCS: 36415; 71045; 80048; 80053; 80069; 81001; 82465; 82533; 82570; 82948; 83690; 83735; 83930; 83935; 84155; 84165; 84300; 84443; 84484; 84540; 85025; 85027; 93005; 93306; 93970; 96360; 97110; 97161; 97165; 97530; 99285; A9270; J0834; J1650; J3475; J7030

== ENCOUNTER 2024-08-10 11:39 | Outpatient (NON) | payer MEDICARE, SELFPAY ==
[2024-08-10 12:47] LABS: Anion Gap 8 mmol/L (4-12); Blood Urea Nitrogen 19 mg/dL (7-17); Calcium 9.4 mg/dL (8.4-10.2); Carbon Dioxide 28 mmol/L (22-30); Chloride 94 mmol/L (98-107); Estimated Glomerular Filt Rate 60; Glucose 91 mg/dL (65-110); Potassium 3.7 mmol/L (3.4-5.0); Sodium 130 mmol/L (137-145)
== END 2024-08-10 11:40 | disposition home or self-care (01) ==
LOC: HOME HLTH 11:40
PROVIDERS: PCP Internal Medicine; Visit Provider Family Medicine
DX: R79.89 Other specified abnormal findings of blood chemistry (principal)
CPT/HCPCS: 80048

== ENCOUNTER 2024-09-02 09:56 | Outpatient (NON) | payer MEDICARE, SELFPAY ==
[2024-09-02 10:41] LABS: Basophils Percent Auto 0.6 % (0.2-1.2); Eosinophils Absolute Auto 0.1 K/mm3 (0-0.3); Eosinophils Percent Auto 1.5 % (0-4.4); Hematocrit 38.3 % (37.0-47.0); Hemoglobin 12.7 g/dL (12.0-15.0); Immature Granulocyte Absolute 0.02 K/mm3 (0.00-0.031); Immature Granulocyte Percent A 0.3 % (0-0.5); Lymphocytes Absolute Auto 1.33 K/mm3 (0.9-3.2); Lymphocytes Percent Auto 19.6 % (18.3-44.2); Mean Corpuscular HGB Conc 33.2 g/dl (32-36); Mean Corpuscular Volume 90.5 fl (80-100); Monocytes Absolute Auto 0.6 K/mm3 (0.1-0.6); Monocytes Percent Auto 8.7 % (2.6-8.5); Neutrophils Absolute Auto 4.7 K/mm3 (1.3-6.7); Neutrophils Percent Auto 69.3 % (45.5-73.1); Platelet Count Result 230 k/mm3 (150-375); Red Blood Count 4.23 M/mm3 (4.2-5.4); Red Cell Distribution Width 14.6 % (11.5-14.5); White Blood Count 6.8 K/mm3 (4.5-10.0)
[2024-09-02 11:33] LABS: Anion Gap 6 mmol/L (4-12); Blood Urea Nitrogen 16 mg/dL (7-17); Calcium 9.9 mg/dL (8.4-10.2); Carbon Dioxide 30 mmol/L (22-30); Chloride 96 mmol/L (98-107); Estimated Glomerular Filt Rate 60; Glucose 88 mg/dL (65-110); Potassium 3.7 mmol/L (3.4-5.0); Sodium 132 mmol/L (137-145)
== END 2024-09-02 09:57 | disposition home or self-care (01) ==
LOC: HOME HLTH 09:57
PROVIDERS: PCP Internal Medicine; Visit Provider Internal Medicine
DX: E87.1 Hypo-osmolality and hyponatremia (principal)
CPT/HCPCS: 80048; 85025

== ENCOUNTER 2025-08-23 10:14 | Emergency (ER) | payer MEDICARE, SELFPAY ==
--- OUTSIDE RECORDS SUMMARY | 2017-05-17 05:15 | XMS_ITS | Continuity of Care Document ---
Author Organization [facility] Address [address] [place] [address] Phone Care Team Providers Care Od Grinder Operator Name Role Phone Georgi Gallagher MD Unavailable Unavailable Allergies, Adverse Reactions, Alerts Substance Reaction Status Criticality No Known Allergies Active No Inform ation Medications Medication Instructions Dosage Effective Dates (start - stop) Status Comments diclofenac sodium 75 mg tablet,delayed release take 1 tablet by oral route 2 times every day 75 MG - Active calcitonin (salmon) 200 unit/actuation nasal spray - Active pantoprazole 40 mg tablet,delayed release take 1 tablet by oral route every day 40 MG - Active valsartan 80 mg tablet take 1 tablet by oral route every day 80 MG - Active Flovent Diskus 50 mcg/actuation powder for inhalation inhale 2 puff by inhalation route every day 100 MCG - Active Xyzal 5 mg tablet take 1 tablet by oral route every day in the evening 5 MG - Active levothyroxine 112 mcg tablet take 1 tablet by oral route every day 112 MCG - Active Lyrica 75 mg capsule take 1 capsule by oral route 2 times every day 75 MG - Active Nevanac 0.1 % eye drops,suspension instill 1 drop by ophthalmic route 3 times every day into affected eye(s) 1.00 drop - Active Nexium 40 mg capsule,delayed release take 1 capsule by oral route every day 40 MG - Active Tradjenta 5 mg tablet take 1 tablet by oral route every day 5 MG - Active meloxicam 7.5 mg tablet take 1 tablet by oral route every day 7.5 MG - No Longer Active Procedures Procedure Date OFFICE/OUTPATIENT VISIT [facility] Advance Directives Directive Yes / No Effective Date File Name No Information Encounters Encounter Description Practice Location Reason(s) For Visit Diagnoses Date Provider Providers Copied on Encounter OFFICE/OUTPA TIENT VISIT [facility], [address], [place], [address], [place] [phone] [facility] Body mass index (BMI) 33.0-33.9, adultPrimary osteoarthritis of left hip 201 [address] Elliott Laureano. [address], [place], [place], [id number] . tel: [phone] Referring Provider: Kareem Sharma, [address], [place], [address]. tel:[phone] Family History Family Member Type Diagnosis Age At Onset Father Problem (finding) Immunizations Vaccine Date Status Comments Flu (split) (3 yrs or older) administered Source: Other Provider Payers Payer name Insurance type Covered constitution party ID Authordionea home(s) [facility] Medicare Advantage PPO OT [id number] Social History Type Description Quantity Date Captured Comments Alcohol Use Details Unknown Caffeine Use Details Unknown Tobacco Use Status Never smoked tobacco 2016 Smoking Status Never smoker Non-Smoking Tobacco Use Details : No Details Available : No Details Available Sex Female Vital Signs Date / Time: Height Weight BMI Pulse Rate Blood Pressure Temperature Respiratory Rate Body Surface Area Head Circumference Head Circ. Percentile Wt./Michael. Percentile BMI percentile Pulse Ox Inhaled Ox 11:51 AM 64.00 in 87.543 kg (193.00 lbs) 33.1 3 kg/m eter (2) 140/80 mm[Hg] Chief Complaint And Reason For Visit No Information Reason For Referral Reason For Referral No Information Plan Of Treatment Date Type Action Status Referral Ordered: X-RAY EXAM HIP UNI W PELVIS 2-3 VIEWS LT ordered History Of Present Illness Encounter Date Complaint History Of Prese nt Illness No Information Functional Status Date Functional Assessmen t No Information Instructions Date Instruction Additional Infor mation Giving encouragement to exercise Related to Body mass index (BMI) 33.0-33.9, adult activity as tolerated Related to Primary osteoarthritis of left hip home exercise program Related to Primary osteoarthritis of left hip Assessments Type Assessment Date assessment Body mass index (BMI) 33.0-33.9, adult assessment Primary osteoarthritis of left h ip Patient Care Teams Name Effective Dates (start - stop) Status Members No Information
--- OUTSIDE RECORDS SUMMARY | 2018-08-18 04:20 | XMS_ITS | Continuity of Care Document ---
Author Organization [facility] Address [address] [place] [address] Phone Care Team Providers Care Queen'S Counsel Name Role Phone Rodney ARENAS MD, Ivan Unavailable Unavaila ble Allergies, Adverse Reactions, Alerts Substance Reaction Status Criticality oxycodone Active No Information OXYCODONE HCL Active No Information acetaminophen Active No Information DICLOFENAC SODIUM Active No Informa tion erythromycin base Nausea Active No Informa tion Medications Medication Instructions Dosage Effective Dates (start - stop) Status Comments tramadol 50 mg tablet take 1-2 tablet by oral route every 4-6 hours as needed - Active calcitonin (salmon) 200 unit/actuation nasal spray - Active esomeprazole magnesium 40 mg capsule,delayed release - Active fluticasone 50 mcg/actuation nasal spray,suspension spray 1 - 2 spray by intranasal route every day in each nostril as needed 50-100 MCG - Active levocetirizine 5 mg tablet - Active levothyroxine 112 mcg tablet - Active Lyrica 75 mg capsule - Active meloxicam 7.5 mg tablet - Active Nevanac 0.1 % eye drops,suspension - Active pantoprazole 40 mg tablet,delayed release - Active Tradjenta 5 mg tablet - Active valsartan 80 mg tablet - Active Calcium 600 + D(3) 600 mg calcium-200 unit capsule - Active Enteric Coated Aspirin 81 mg tablet,delayed release - Active Glucosamine 500 mg tablet - Active MAGNESIUM (unknown strength) Not Available - Active MULTIVITAMINS (unknown strength) Not Available - Active VITAMIN B COMPLEX (unknown strength) Not Available - Active Cahone 3 Fish Oil 684 mg-1,200 mg capsule,delayed release - Active PRILOSEC (unknown strength) Not Available - Active SYSTANE ULTRA (unknown strength) Not Available - Active Vitamin C 500 mg capsule,extended release - Active Procedures Procedure Date X-ray Exam Hip Unilat With Pelvis When P erf 2-3 View Office/outpatient visit,est, mod 2017 Office/outpatient visit,est, low 2017 X-ray Exam Hip Unilat With Pelvis When P erf 2-3 View Global/Postop followup visit X-ray Exam Hip Unilat With Pelvis When P erf 2-3 View Global/Postop followup visit X-ray Exam Hip Unilat With Pelvis When P erf 2-3 View Office/outpatient visit,est, mod 2017 Fluoroscopic Guidance; Non Spinal Asp/inject major joint or bursa w/o US g uidance Marcaine Injection Omnipaque, 300-399 mg/ml, per ml 2016 Lidocaine For Injection, 10 Mg Per Ml Au Depo Medrol Methylprednisolone 40 MG inj Office/outpatient visit,[place], [facility] 2016 Advance Directives Directive Yes / No Effective Date File Name No Information Encounters Encounter Description Practice Location Reason(s) For Visit Diagnoses Date Provider Providers Copied on Encounter Office/outpat ient visit,est, mod [facility], [address] [place] [address], [id number], [place] [phone] [facility] Unilateral primary osteoarthrit is, left hipPresence of left artificial hip joint 8 Rodney Diamond er. [address] [place] [address], [place], [place], [id number] , [place]. tel: [phone] Referring Provider: Ivan Stevens MD D, [address] [place] [address], [place], [address]. [phone] [facility], [address] [place] [address], [place], [place], [id number], [place] tel:[phone] [facility] Unilateral primary osteoarthrit is, left hipPresence of left artificial hip joint 8 Rodney rankin. [address] [facility] [place] [address], [place], [place], [id number] , [place]. tel: [phone] [facility], [address] [address], [place], [place], [id number], [place] tel:[phone] [facility] Presence of left artificial hip joint 8 Rodney rankin. [address] [facility], [place] [address], [place], [place], [id number] , [place]. tel: [phone] Referring Provider: Ivan Massey, [facility] [address], [place], [address]. tel:[phone] [facility], [address] [address], [place], [place], [id number], [place] tel:[phone] [facility] Unilateral primary osteoarthrit is, left hipPresence of left artificial hip joint 8 Rodney rankin. [address] [facility], [place] [address], [place], [place], [id number] , [place]. tel: [phone] Referring Provider: Ivan Massey, [address] [address], [place], [address]. tel:[phone] [facility], [address], [id number], [place] tel:[phone] [facility] No Information 8 Rodney rankin. [address] [place] [address], [place] [address], [place], [place], [id number] , [place]. tel: [phone] [facility], [address], [id number], [place] tel:[phone] [facility] Presence of left artificial hip joint 8 Rodney Diamond er. [address] [facility], [place] [address], [place], [place], [id number] , [place]. tel: [phone] [facility], [address] [address], [place], [place], [id number], [place] tel:[phone] [facility] Unilateral primary osteoarthrit is, left hip Jan- 8 Rodney Diamond er. [address] [facility], [place] [address], [place], [place], [id number] , [place]. tel: [phone] Office/outpat ient visit,[facility], [facility], [address] [address], [place], [place], [id number], [place] tel:[phone] [facility] Left Hip (chief complaint) Unilateral primary osteoarthrit is, left hip Jan-0 8 Rodney rankin. [address] [place] [address], [place], [place], [id number] , [place]. tel: [phone] Referring Provider: Ivan Massey, [address] [place] [address], [place], [address]. [phone] [facility], [address] [address], [place], [place], [id number], [place] tel:[phone] [facility] Left Hip (chief complaint) Unilateral primary osteoarthrit is, left hip 7 Lolis Roman. [address] [facility], [place] [address], [place], [address], [place]. tel: [phone] Referring Provider: Abel Danielle I, [address] [place] [address], [place], [address]. tel:[phone] Office/outpat ient visit,[facility], [facility], [address] [address], [place], [place], [id number], [place] tel:[phone] [facility] Left hip (chief complaint) Unilateral primary osteoarthrit is, left hip 7 Rodney rankin. [address] [facility], [place], [place], [id number] , [place]. tel: [phone] Referring Provider: Ivan Stevens MD D, [address], [place], [address]. tel:[phone] Family History Family Member Type Diagnosis Age At Onset Mother Problem (finding) hypertension Father Problem (finding) Kidney trouble or stone s Maternal grandmother Problem (finding) Cancer, unknown Mother Problem (finding) stroke Father Problem (finding) Arthritis Mother Problem (finding) Diabetes mellitus Mother Problem (finding) Arthritis Payers Payer name Insurance type Covered democrat ID Tim bhat(s) [employer] CI [id number] Social History Type Description Quantity Date Captured Comments Alcohol Use Details Unknown Caffeine Use Details Unknown Tobacco Use Status No Information Smoking Status No Information Sex Female Chief Complaint And Reason For Visit No Information Reason For Referral Reason For Referral No Information Plan Of Treatment Date Type Action Status Referral Ordered: X-ray Exam Hip Unilat With Pelvis When Perf 2-3 View LT ordered Referral Ordered: Other LT ordered Patient Education Body Mass Index: After Your Visit completed History Of Present Illness Encounter Date Complaint History Of Prese nt Illness Left Hip Marilyn is a ple asant 72-year-old female, she presents today for evaluation of her left hip. I have seen see her in the past for this. She is undergone a cortisone injection on 06/11/17, she's using a cane. She states that she's having quite a bit of pain and is ready to undergo a left hip arthroplasty. She Splane Carbone injection only lasted several days she limps. Her pain as an 8 out of 10 it is in the groin. She has failed greater than 1 year conservative management. She does have some obesity and diabetes is controlled with oral medications. Left Hip Marilyn comes in to the office for her left hip pain Left hip Marilyn is a ple asant 72-year-old female who presents today for evaluation of her left hip and groin pain. Her pain is been present for 1 year. She has been evaluated by Dr. Georgi Gallagher with no treatment. She rates her pain as a 2/10. It is occasional aching and stabbing. Her pain is inconsistent she had does have night pain and difficulty sleeping. Her pain is made better by ice, rest, stretching, heat, Tylenol and exercise. Her pain is made worse with bending lifting and standing. She has used anti-inflammatory medication. She is currently on meloxicam. She has had chiropractic manipulation. She has had no previous injections, she has an allergy to diclofenac and has used this in the past with an upset stomach. She does not use an assistive device.She presents with radiographs from an outside source. These demonstrate end-stage osteoarthritis of the left hip, with severe osteoporosis. Functional Status Date Functional Assessmen t No Information Instructions Date Instruction Additional Infor gareth Appropriate preopera tive radiographs were obtained and these will be used for templating. We discussed the risks of DVT -- the patient was explained that we would use aspirin and PAS active care compression devices for DVT prophylaxis. Additionally the patient will be required to undergo a preoperative workup including evaluation for surgical evaluation center. An clearance from the primary medical doctor. All questions were answered wrist and benefits explained to patient wishes to be scheduled for total hip arthroplasty.Based upon the significant osteoporosis and pelvic incidence I would suggest a cemented stem, and serious consideration for dual mobility construct prevent dislocation. These wrist were discussed with the patient. We'll proceed through posterior lateral approach due to her abdominal pannus . Related to Unilateral primary osteoarthritis, left hip Assessments Type Assessment Date assessment Unilateral primary osteoarthriti s, left hip assessment Presence of left artificial hip joint Patient Care Teams Name Effective Dates (start - stop) Status Members No Information
--- OUTSIDE RECORDS SUMMARY | 2022-01-05 01:45 | XMS_ITS | Continuity of Care Document ---
[facility] [place] [address] [facility] [address] [place] [address] Phone Care Team Providers Care Nuclear Scientist Name Role Phone Fernandez Schwartz MD Unavailable Unavailable Allergies, Adverse Reactions, Alerts Substance Reaction Status Criticality OXYCODONE HCL Active No Information acetaminophen Active No Information oxycodone Active No Information DICLOFENAC SODIUM Active No Informa tion diclofenac Active No Information erythromycin base Active No Informa tion Medications Medication Instructions Dosage Effective Dates (start - stop) Status Comments Nevanac 0.1 % eye drops,suspension instill 1 drop by ophthalmic route 2 times every day into right eye 1 drop - Active FLUTICASONE PROPIONATE (unknown strength) take one tablet daily Not Available - Active atorvastatin 10 mg tablet take 1 tablet by oral route every day 10 MG - Active azelastine 0.15 % (205.5 mcg) nasal spray spray 1 spray by intranasal route 2 times every day in each nostril 205.5 MCG - Active clobetasol 0.05 % topical cream apply by topical route 2 times every day a thin layer to the affected area(s) 0.00 - Active ketoconazole 2 % shampoo apply by topical route every day to the affected area(s), lather, leave in place for 5 minutes, and then rinse off with water 0.00 - Active losartan 25 mg tablet take 1 tablet by oral route every day 25 MG - Active Euthyrox 125 mcg tablet take 1 tablet by oral route every day 125 MCG - Active Nystop 100,000 unit/gram topical powder apply by topical route 2 times every day to the affected area(s) 0.00 - Active Ozempic 0.25 mg or 0.5 mg (2 mg/1.5 mL) subcutaneous pen injector inject (0.25MG) by subcutaneous route every week for 4 weeks then inject 0.5 mg subcutaneously once weekly using rotating injectionsites - Active calcitonin (salmon) 200 unit/actuation nasal spray take one tablet daily - Active Tradjenta 5 mg tablet take 1 tablet by oral route every day 5 MG - Active Nexium 40 mg Cap take 1 capsule (40MG) by ORAL route every day 40 MG - Active Lyrica 75 mg Cap take 1 capsule (75MG) by ORAL route 2 times every day 75 MG - Active Levocetirizine 5 mg Tab take 1 tablet (5MG) by ORAL route every day in the evening 5 MG - Active Procedures Procedure Date Fundus Photography W/ Report Eye Exam & Treatment Eye Exam & Treatment Eye Exam & Treatment Eye Exam & Treatment Office/outpatient Visit, Est Office/outpatient Visit, Est Post-op Follow-up Visit Post-op Follow-up Visit Curette/treat Cornea Eye Exam, New Patient Certified EMR Advance Directives Directive Yes / No Effective Date File Name No Information Encounters Encounter Description Practice Location Reason(s) For Visit Diagnoses Date Provider Providers Copied on Encounter [facility], [id number] [place] [address] [address], [place], [place], [id number], [place] tel:[phone] SEC Abraham Duff No Information 2 Efren Presley. [address] [facility], [address], [place], [place], [address], [place]. tel:[phone] [facility], [address] [facility] [address], [place], [place], [address], [place] [phone] SEC Calvin Buenrostro No Information 0 Leslie Cobb. [address] [place] [address] [address], [address], [place], [place], [address], [place]. tel:[phone] [facility], [address] [place] [address] [address], [place], [place], [address], [place] tel:[phone] SEC [place] Professional Complete Exam (chief complaint) Aphakia of right eyeCombined forms of age-related cataract, left eyeType 2 diabetes mellitus without complication sHistory of retinal tearBand keratopathy of right eye Sep-1 0 Efren Presley. [address] [facility], [address], [address], [place]. tel:[phone] Referring Provider: Georgi Gunn OD, [address] [place] [address], [facility]. tel:[phone] [facility], [address] [place] [address] [address], [place], [place], [address], [phone] SEC Crumrod Stiven Neely No Information Sep-0 0 Efren Presley. [address] [facility], [address], [address], [place]. tel:[phone] [facility], [address] [place] [address] [address], [place], [place], [address], [place] tel:[phone] SEC Abraham [place] Professional diabetic eye exam (chief complaint) Combined forms of age-related cataract, left eyeType 2 diabetes mellitus without complication sHistory of retinal tearAphakia of right eyeBand keratopathy of right eyeCorneal edema of right eyePVD (posterior vitreous detachment), left eyeAllergic conjunctivit is of right eye Oct-1 6-201 8 Efren Presley. [address] [facility], [address], [place], [address], [place]. tel:[phone] Referring Provider: Georgi Gunn OD, [address] [place] [address], [facility]. tel:[phone] [facility], [address] [place] [address] [address], [place], [place], [address], [place] tel:[phone] SEC [place] Professional Complete Exam (chief complaint) Aphakia of right eyeBand keratopathy of both eyesCombined forms of age-related cataract, left eyeType 2 diabetes mellitus without complication sChorioretin al scar of left eye Jan- 7 Wankum Garfield. [address] [facility] [facility], [address], [address], . tel:[phone] Referring Provider: Georgi Gunn OD, [address] [place] [address], [facility]. tel:[phone] [facility], [address] [place] [address] [address], [place], [place], [address], [place] tel:[phone] SEC Abraham [place] Professional Difficulty reading (chief complaint) No Information 6 [address] Hospit[facility] Valleald. [address] [facility], [facility] [place], [address], [place]. tel:[phone] Referring Provider: Georgi Gunn OD, [address] [place] [address], [facility]. tel:[phone] Office/outpa tient Visit, [facility] [place], [address] [place] [address] [address], [place], [place], [address], [place] [phone] SEC Orland [place] Professional Annual Diabetic Exam (chief complaint) No Information Rufino Vaz. [address] [facility], [address], [address], [place]. tel:[phone] Referring Provider: Georgi Gunn OD, [address] [place] [address], [address]. tel:[phone] [facility], [address] [place] [address] [address], [place], [place], [address], [place] tel:[phone] SEC Calvin Neely No Information 5 Leslie Cobb. [facility] [address], [address], [place], [place], [address], [place]. tel:[phone] Office/outpa tient Visit, Est [facility], [address], [place], [place], [address], [place] tel:[phone] SEC Crumrod N [address] No Information 3 San Fidel Reza. [address] [employer] [facility], [address], [place], [place], [address], [place]. tel:[phone] Referring Provider: Georgi Gunn OD, [address] [place] [address], [address]. tel:[phone] [facility], [address] [place] [address] [address], [place], [place], [address], tel:[phone] SEC Calvin N [address] No Information 2 Rufino Vaz. [facility], [address], [address], [place]. tel:[phone] Referring Provider: Georgi Gunn OD, [address] [place] [address], [address]. tel:[phone] [facility], [address] [place] [address] [address], [place], [place], [address], [place] tel:[phone] SEC Calvin N [address] No Information 2 [place] Fidel Reza. [facility] [employer] [facility], [address], [place], [address], [place]. tel:[phone] Referring Provider: Georgi Gunn OD, [address] [place] [address], [address]. tel:[phone] [facility], [address] [place] [address] [address], [place], [place], [address], [place] tel:[phone] [facility] No Information 2 Leslie Reza. [facility] [employer] [facility], [address], [place], [place], [address], [place]. tel:[phone] Referring Provider: Georgi Gunn OD, [address] [place], [address]. tel:[phone] [facility], [address] [place] [address] [address], [place], [place], [address], tel:[phone] KQT Calvin Buenrostro No Information 2 Leslie Cobb. [address] [place] [address], [address], [place], [address], . tel:[phone] Referring Provider: Georgi Gunn OD, [address] [place], [address]. tel:[phone] [facility], [address] [place] [address] [address], [place], [place], [address], tel:[phone] GJJ Abraham [place] Professional No Information 2 Rufino Vaz. [address] [facility], [address], [address], . tel:[phone] Family History Family Member Type Diagnosis Age At Onset Mother Problem (finding) hypertension Close relative Problem (finding) retinal disease Mother Problem (finding) diabetes melli tus in first degree relative Mother Problem (finding) congestive heart failur e Close relative Problem (finding) hypertension Maternal uncle Problem (finding) Diabetes mellitus Payers Payer name Insurance type Covered alliance party ID Authoriza tion(s) [facility] Mdcr Adv CI [id number] Social History Type Description Quantity Date Captured Comments Sex Female Smoking Status No Information Chief Complaint And Reason For Visit No Information Reason For Referral Reason For Referral No Information Plan Of Treatment Date Type Action Status Patient Education Cataracts: Care Instruc tions completed History Of Present Illness Encounter Date Complaint History Of Prese nt Illness Complete Exam The 75 year old female presents for evaluation of Complete Exam in the right eye and left eye. Hx of Aphakia OD, CAT OS, Sx for RD and RT OU, Mac hole s/p Cryo OS, Band K OU, and Allergic conjunctivitis OU. Pt reports she uses Nevanac BID OD only and AFT BID OS only. Pt is NIDDM II since December 2019, followed by PCP, pt reports BS was 143 last Saturday and she is unaware of A1C. Pt reports she sees well, OS, she saw the Cart Pusher last week and has gls on order. diabetic eye exam The 73 year ol d female presents for a complete Type II diabetic eye exam ou. Patient is Aphakic OD, Cataract OS, hx of RD ou and hx of Band K ou. Patient uses Nevenac OD and Systane. Patient thinks she has an infection in OD because it's itching really bad. Patient doesn't check BS. Complete Exam The 71 year old female presents for Complete Type II diabetic eye exam in the right eye and left eye. Patient doesn't check BS. Hx Aphakia OD, Cataract OS, Mac Hole repaired OD, retinal tears repaired OS. Patient saw Dr. Gunn recently for blepharitis and has since cleared up. Difficulty reading The 70 year o ld female presents for a complete cataract check OS. Patient denies any changes in vision OS. Patient see RI twice a year. Patient uses Nevenac bid OD. Annual Diabetic Exam The 69 year old female presents for Annual Diabetic Exam. Patient Hx Numerous Retinal tears and Retinal procedures OU () s/p EDTA scrub OD 2012 and Type II Diabetes. Patient reports she is here to get an RX for Nevanac to soothe OD. Patient states that she saw Dr. Gunn in July [address] Wilkerson in August 2014. Patient states the only thing that helps OD is Nevanac. Patient reports that she is PRE Diabetic and doesn't check her blood sugar at home, only gets a blood test at the doctor X 6 months. Patient uses Systane Ultra PRN OS and Nevanac BID OD. Functional Status Date Functional Assessmen t No Information Instructions Date Instruction Additional Infor gareth Impression/Plan Impression/Plan Aphakia of right eye - Educational material given Related to Aphakia of right eye Impression/Plan - Di scussed diagnosis in detail with patient. Recommend artificial tears OU. Diabetes type II: no background retinopathy, no signs of neovascularization noted. Discussed ocular and systemic benefits of blood sugar control. DM letter sent to Dr Tomlin. Retinal scar OS stable. Aphakia OD. Band Keratopathy stable OU, Continue Nevanac BID OD, refills sent to [email or web address]. Return to clinic in 1 year for complete exam or sooner with any problems. Follow up - Return i n 1 year with for Complete Exam. Impression/Plan - Di abetes type II: no background retinopathy, no signs of neovascularization noted. Discussed ocular and systemic benefits of blood sugar control. DM letter sent to Dr Tomlin. Discussed cataracts with pt and treatment options. pt also understands at this time vision does not qualify to have CE with insurance coverage. Retinal scar OS discussed no treatment needed. Continue Nevanac BID OD. [facility]. Return to clinic in 1 year for complete exam or sooner with any problems. Follow up - Return i n 1 year with Garfield Joy M.D. for Complete Exam. Senile nuclear scler osis - Surgery not indicated now. Related to Senile nuclear sclerosis - Discussed diagnosi s with patient. Patient understands no treatment needed at this time. Erx Nevanac refills. Return in 1 year for complete or sooner with any problems. Letter dictated to Dr Gordon. Related to See list of assessments above - Return in 1 year w efra Joy M.D. for Complete Exam Related to See list of assessments above BAND-SHAPED KERATOPA THY, OD - recurrent,S/P EDTA silicone oil present - Discussed dx with pt. Pt understands if desired repeat EDTA canbe done,but pt understands that this can keep re occuring. Discussed BCL placement if desired. Pt will consider her options. Pt understands OD will not improve with vision, but can have eviseration to relieve discomfort. Pt also sees an OD in [place] and will return to him if BCL desired. Restart Nevanac OD TID-QID Rx and rebate card given to pt Related to BAND-SHAPED KERATOPATHY - to Dr. gunn or 6 months with us Related to BAND-SHAPED KERATOPATHY - 3 Months Related to FOLLO W-UP SURGERY NOS FOLLOW-UP SURGERY NO S, OD - 1 week po s/p EDTA scrub- established, stable - will continue to monitor - D/c Nevanac. Use Tdex tapering then d/c. if eye gets irritated after d/c gtts pt to start Tdex again then RTC. Will monitor. Related to FOLLOW-UP SURGERY NOS FOLLOW-UP SURGERY NO S, OD - vision affected - will continue to monitor - Medication instillation reviewed and understood. Take medication(s) as written. Will continue to observe condition and or symptoms. Post-Op instructions given and understood. Discussed BCL wear if pt feels irritation. Pt ok to wear make up. Related to FOLLOW-UP SURGERY NOS - 1 week post op as scheduled Re lated to FOLLOW-UP SURGERY NOS BAND-SHAPED KERATOPA THY, OD causing pain and irritation - Discussed dx with pt, and discussed treatment options with pt, EDTA OD, complete tarrs, conj flap, or eviseration, All options discussed with pt at length, and r/a/b of all procedures discussed. Pt will consider all of her options. Samples of ATs given to pt, to use OD, Letter dictated to Dr. Chen will call if surgery desired. 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 Wilkerson at [facility] Related to PERIPHERAL RETINAL SCARS Cataract, Nuclear Sc lerosis, OS - vision affected - will continue to monitor - Discussed dx with pt, no treatment needed at this time. will continue to monitor, pt understands vision decrease with cataract growth. Related to Cataract, Nuclear Sclerosis - 6 months follow up Related to BAND-SHAPED KERATOPATHY Assessments Type Assessment Date No Information Patient Care Teams Name Effective Dates (start - stop) Status Members No Information
--- OUTSIDE RECORDS SUMMARY | 2024-11-30 09:50 | XMS_ITS ---
Author Organization [facility] Address [address] [facility] [address] [place], [place] [id number] Care Team Providers Care Contract Programmer Name Role Phone OBED RANDY Unavailable [phone] unknown, unknown Unavailable Unavailable REASON FOR VISIT The patient has dry peeling skin to the outside of her right heel. She is worried about it bleedingor peeling off., She also has heel pain that is being treated by another material clerk. She has had 2 cortisone injections and got scanned for custom orthotics. 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 Emollient: Recommend that the patient use an emollient such as rrim-kwr-xqezlo r Eucerin cream, Vanicream, or other lotion to the affected area. 11/30/2024 Plantar fascial fibromatosis (ICD-10 - M72.2) Plantar Fascitis: I discussed anti-inflammato ry treatment options and various means of pronation control with the patient. I educated the patient on icing and stretching, supportive shoegear, and the use of orthotic devices. It is too soon in my opinion to give a 3rd injection. I would wait to see how the new custom orthotics help. I did discuss ice, stretching, and supporitve shoes in conjunction with orthotics 11/30/2024 Primary focal hyperhidrosis, soles (ICD-10 - L74.513) 11/30/2024 Pain in right foot (ICD-10 - M79.671) Plan Of Treatment Treatment Notes Assessment Notes Other specified dermatitis A total of 1 corns or calluses, as described in the note above, were cut and pared utilizing a #15 blade. Emollient: Recommend that the patient use an emollient such as [id number]-hiqdnvp Eucerin cream, Vanicream, or other lotion to the affected area. Plantar fascial fibromatosis Plantar Fascitis: I discussed anti-inflammatory treatment options and various means of pronation control with the patient. I educated the patient on icing and stretching, supportive shoegear, and the use of orthotic devices. It is too soon in my opinion to give a 3rd injection. I would wait to see how the new custom orthotics help. I did discuss ice, stretching, and supporitve shoes in conjunction with orthotics Next Appt Details Follow Up: prn, Reason: History and Physical Notes * HPI (History of Present Illness) Category Sub-Category Detail Notes Category Not es HPI New Complaint Patient presents for a new patient consultation., Patient complains of an issue to skin peeling on her right foot. Patient states she realized today that her skin was peeling off of her right heel, and it was causing her pain. Patient also has plantar fasciitis in her right foot that she received an injection for last week with another doctor that has not been helping, so she wanted to discuss that with the doctor as well. SILVANO LB Examination Category Sub-Category Detail Notes Category Not es Dermatologic Skin findings: There is scaling on the lateral aspect of the right heel. Debridement of the hyperkeratotic skin shows normal skin beneath Neurologic Gross sensation Gross sensation is intact to light touch Vascular Dorsalis pedis pulse: 2/4, bilateral Edema: No edema, bilateral Capillary refill: less than 3 seconds Posterior tibial pulse: 2/4, bilateral Musculoskeletal Muscle Strength Muscle strength is 5/5 in regards to dorsiflexion, plantarflexion, inversion, and eversion in bilateral lower extremities Pain on palpation medial band of the r ight plantar fascia near its attachment to the calcaneus Constitutional Constitutional The patient is a wake, alert, well developed, well groomed and well nourished Progress Notes * Marilyn HANDLEYDOB: [birth year] (80 yo F)Acc No.[id number]:11/30/2024 Progress Notes Patient: Marilyn Calhoun Provider: Luca Clay DPM :1945 A ge:79 Y S ex:Female Date:11/30/2024 Address:[address] [place] [address], [id number] Subjective: * Chief Complaints: * T he patient has dry peeling skin to the outside of her right heel. She is worried about it bleeding or peeling off.She also has heel pain that is being treated by another material clerk. She has had 2 cortisone injections and got scanned for custom orthotics. Her custom orthotics should come in 2 weeks and she had an injection last week * HPI: H PI: New Complaint P atrito presents for a new patient consultation., Patient complains of an issue to skin peeling on her right foot. Patient states she realized today that her skin was peeling off of her right heel, and it was causing her pain. Patient also has plantar fasciitis in her right foot that she received an injection for last week with another doctor that has not been helping, so she wanted to discuss that with the doctor as well. SILVANO LB. * ROS: G eneral / Constitutional: Patient denies c hills, fever, weakness, night sweats. M usculoskeletal: Patient denies c hildhood foot problems, weakness. P atient complains of h eel pain. P eripheral Vascular: Patient denies u lceration of feet, cold extremities. ? S kin: Patient denies u lcerations, discoloration. P atient complains of d ry skin. N eurologic: Patient denies b alance difficulty, confusion, difficulty speaking, dizziness. * Medical History: Acid reflux Artificial joint GERD Arthritis Sleep apnea Back Trouble Diabetic Heart/disease/failure * Medications: N one Objective: * Examination: C onstitutional: Constitutional T he patient is awake, alert, well developed, well groomed and well nourished. D ermatologic: Skin findings: T here is scaling on the lateral aspect of the right heel. Debridement of the hyperkeratotic skin shows normal skin beneath. ? V ascular: Dorsalis pedis pulse: 2 /4, bilateral. Posterior tibial pulse: 2 /4, bilateral. Capillary refill: l ess than 3 seconds. Edema: N o edema, bilateral. N eurologic: Gross sensation G ross sensation is intact to light touch.? M usculoskeletal: Muscle Strength M uscle strength is 5/5 in regards to dorsiflexion, plantarflexion, inversion, and eversion in bilateral lower extremities. Pain on palpation m edial band of the right plantar fascia near its attachment to the calcaneus. Assessment: * Assessment: 1. O ther specified dermatitis - L30.8 (Primary) 2 . P lantar fascial fibromatosis - M72.2 3 . P rimary focal hyperhidrosis, soles - L74.513 ?4. P ain in right foot - M79.671 Plan: * Treatment: 2. P lantar fascial fibromatosis Notes: Plantar Fascitis: I discussed anti-inflammatory treatment options and various means of pronation control with the patient. I educated the patient on icing and stretching, supportive shoegear, and the use of orthotic devices. It is too soon in my opinion to give a 3rd injection. I would wait to see how the new custom orthotics help. I did discuss ice, stretching, and supporitve shoes in conjunction with orthotics * Preventive Medicine: Screenings: F all risk screening F all Risk Assessment: N o falls in the past year. * Follow Up: p rn Billing Information: * Visit Code: 73425 Office Visit, New Pt., Level 3. * Electronic signature of RANDY CLAY DPM on 08/23/2025 at 11:12 AM HOURLY CAREGIVER Sign off status: Pending * Provider: Luca Clay DPM Date: 0 11/30/2024 Generated for Aidan dalton/Benjamin/eTransmitting on: 10/23/2024 11:12 AM HOURLY CAREGIVER
[2025-08-23] VITALS (7 sets, daily range): BP systolic 159–179; BP diastolic 66–80; PULSE 61–69; RESP 11–20; TEMP 36.2; O2SAT 97–100
--- NOTE | ~2025-08-23 | CT_ITS ---
CT HEAD CTA NECK, CTA HEAD Clinical History: L hand weakness Comparison: None TECHNIQUE: Unenhanced axial images skull base to vertex Coronal, sagittal reformats Helical images thoracic inlet to vertex IV contrast information not listed in PACS Coronal, sagittal reformats. Multiplanar MIPS. CT images acquired with automatic exposure control for dose reduction DLP: 1467 mGy-cm Findings: CT HEAD Right occipital lobe encephalomalacia. Small encephalomalacia right parietal white matter. Basal ganglia lacunae. Chronic white matter microvascular ischemic changes. Sulci, ventricles: Unremarkable. No intracerebral hemorrhage. No evidence acute territorial infarct. No mass effect, midline shift. Bony calvarium intact. Visualized paranasal sinuses: Clear. Mastoid air cells: Clear. No abnormal foci of contrast enhancement. Patent dural venous sinuses. CTA NECK NASCET Criteria utilized Aortic arch: No aneurysm or dissection. Atherosclerotic disease Great vessel origins: No stenosis. CCAs: No dissection. No stenosis. Cervical ICAs: No dissection. No stenosis. Vertebral Arteries: Patent. V4 calcifications. Lung Apices: Mosaic attenuation. Thyroid: Atrophic and/or absent. Nodes: No enlarged nodes. Bones: No acute bony abnormality. CTA HEAD: Aneurysms: None. Intracranial ICAs: Patent, unremarkable. ACAs and their distal branches: Patent, unremarkable. A-Comm: Identified. Patent, unremarkable. MCAs and their distal branches: Patent. Left M2 stenosis. Basilar artery: Patent, unremarkable. integrated circuits inspector and their distal branches: Severe P1 and P2 stenoses bilaterally. P-Comms: Identified. IMPRESSION: CT HEAD: 1. 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 2. Otherwise no acute intracranial findings. CTA NECK: 1. No ICA stenosis or other acute arterial abnormality. CTA HEAD: 1. No large vessel arterial occlusive disease or other acute findings. 2. Scattered anterior and posterior circulation stenoses. 3. No aneurysms. Reviewed, dictated and finalized at location R. COMMUNITY MANAGER
--- OUTSIDE RECORDS SUMMARY | 2025-08-23 11:12 | XMS_ITS | Patient Health Record ---
Author Organization [facility] Address [address] [place], [place] [id number] Care Team Providers Care Tunnel Mucker Name Role Phone RANDY CLAY Unavailable [phone] unknown, unknown Unavailable Unavailable Reason For Referral No Information Encounters Encounter Location Date Provider Diagnosis [facility] [address] [place], [place] [id number] 11/30/2024 RANDY CLAY Other specified dermatitis L30.8 ; Plantar fascial [...] the patient use an emollient such as bone-avq-fskmtt r Eucerin cream, Vanicream, or other lotion [...] foot (ICD-10 - M79.671) Plan Of Treatment No Information Insurance Providers Payer Name Payer Address Payer Phone Subscriber Number Group Number Insured Name Patient Relationship to Insured Coverage Start Date Coverage End Date [employer] [address] [place] [phone] [id number] Marilyn Stone Self - patient is the insured Medical (General) History Medical History History ICD Code acid reflux artificial joint GERD Arthritis Sleep apnea Back Trouble Diabetic heart/disease/failure
--- OUTSIDE RECORDS SUMMARY | 2025-08-23 11:12 | XMS_ITS | Clinical Summary ---
Author Organization [facility] Address [address] [place] [address] Care Team Providers Care Cone Marker Name Role Phone Kareem Tomlin MD Primary Care Provider [phone] Social History Tobacco Use Types Packs/Day Years Used Date Smoking Tobacco: Never Assessed Comments Unknown Sex and Gender Information Value Date Recorded Sex Assigned at Not on file Legal Sex Female 12:27 PM CDT Gender Identity Not on file Sexual Orientation Not on file Plan of Treatment Health Maintenance Due Date Last Done Comments DTaP, Tdap and Td Vaccines (1 - Tdap) 1964 Annual Medicare Wellness Visit 2010 Dexa Scan (General) 2010 Zoster Vaccines (2 of 3) 09/18/2015 07/24/2015 PHQ-2 (Physician [place]) 10/21/2024 COVID-19 Vaccine ( season) 2025 08/06/2023, 08/13/2022, 09/08/2021, Additional history exists Influenza Adult (#1) 2025 07/13/2019, 07/15/2018, 08/01/2017, Additional history exists Pneumococcal Vaccine: 50+ Years Completed 11/24/2018, 03/20/2017 RSV Immunization or 60+ Years Completed 08/06/2023 Hepatitis A Vaccines Aged Out No long er eligible based on patient's age to complete this topic Meningococcal B Vaccine Aged Out No l onger eligible based on patient's age to complete this topic Meningococcal Vaccine Aged Out No lopez meagan eligible based on patient's age to complete this topic RSV Immunizations Under 20 Months Aged Out No longer eligible based on patient's age to complete this topic Insurance [employer] MEDICARE Care Teams Cone Marker Relationship Specialty Start Date End Date Kareem Tomlin MD [address] [place] [address] PCP - General INTERNAL MEDICINE 04/13/24
--- OUTSIDE RECORDS SUMMARY | 2025-08-23 11:12 | XMS_ITS | Clinical Summary ---
Author Organization [facility] [address] Address [address] [place] [address] Care Team Providers Care Hemodialysis Charge Nurse Name Role Phone Kareem Tomlin MD Primary Care Provider [phone] Allergies Active Allergy Reactions Criticality Noted Date Comments Diclofenac Sodium Other (See comments) Low Reaction: ABDOMINAL PAIN, Erythromycin Other (See comments) Low Reaction: ABDOMINAL PAIN, Hydrochlorothiazide Syncope High 08/17/2024 Oxycodone Hallucinations Medium 06/15/2024 Medications calcitonin (MIACALCIN) 200 unit/actuation nasal spray Administer 1 spray into one nostril daily Alternating nostrils Active fluticasone (FLONASE) 50 mcg/actuation nasal spray Administer 2 sprays into each nostril daily Active levocetirizine (XYZAL) 5 mg tablet Take 1 tablet (5 mg total) by mouth every evening Active pregabalin (LYRICA) 75 mg capsule Take 1 capsule (75 mg total) by mouth 2 (two) times a day Active nepafenac (NEVANAC) 0.1 % ophthalmic suspension Administer 1 drop into the right eye 2 (two) times a day Active atorvastatin (LIPITOR) 10 mg tablet Take 1 tablet (10 mg total) by mouth daily Active linagliptin (TRAJENTA) 5 mg tablet Take 1 tablet (5 mg total) by mouth daily Active nystatin powder Apply 1 application (deactivated) topically 2 (two) times a day Active calcium carbonate-vitam in D3 (CALTRATE 600 + D) 1500 mg (600 mg elemental) -400 units per tablet Take 1 tablet by mouth 2 (two) times a day Active aspirin 81 mg chewable tablet Take 1 tablet (81 mg total) by mouth 2 (two) times a day Active glucosamine-cho ndroitin 500-400 mg capsule Take 1 capsule by mouth daily Active magnesium oxide (MAG-OX) 400 mg (241.3 mg elemental magnesium) tablet Take 1 tablet (400 mg total) by mouth daily Active vit A,C and H-nrvexq-bbpcba ls (OCCUVITE with LUTEIN) 1,000 unit-200 mg-60 unit-2 mg tablet Take 1 tablet by mouth daily Active thiamine (VITAMIN B-1) 100 mg tablet Take 1 tablet (100 mg total) by mouth daily Active multivitamin tablet Take 1 tablet by mouth daily Active xqyvr-6-pkb-epa -dpa-fish oil 1,050-1,200 mg capsule Take 1 capsule by mouth 2 (two) times a day with lunch and dinner Active peg 400-propylene glycol (SYSTANE) 0.4-0.3 % ophthalmic solution Administer 1 drop into the left eye 2 (two) times a day Active ascorbic acid (VITAMIN C) 500 mg tablet,chewable Take 1 tablet/chew tab (500 mg total) by mouth daily Active acetaminophen 500 mg capsule Take 2 capsules (1,000 mg total) by mouth 3 (three) times a day. 30 tablet [address] (NexIUM) 40 mg capsuleIndicati ons:gerd Take 1 capsule (40 mg total) by mouth daily Active ketoconazole (NIZORAL) 2 % shampoo APPLY TO THE SCALP TOPICALLY THREE TIMES A WEEK FOR 30 DAYS 0 Active levothyroxine (SYNTHROID) 125 mcg tablet Take 1 tablet (125 mcg total) by mouth billing associate before breakfast Active clobetasoL (TEMOVATE) 0.05 % cream 0 Active polyethylene glycol (MIRALAX) 17 gram packetIndicatio ns:constipation Take 1 packet (17 g total) by mouth daily Active indapamide (LOZOL) 1.25 mg tablet Take 1 tablet (1.25 mg total) by mouth daily 4 Active amlodipine-olme sartan (HARMEET) 5-20 mg per tablet Take 1 tablet by mouth daily Active furosemide (LASIX) 20 mg tablet Take 1 tablet (20 mg total) by mouth 2 (two) times a day Active irbesartan (AVAPRO) 300 mg tablet Take 1 tablet (300 mg total) by mouth nightly Active tirzepatide (Mounjaro) 10 mg/0.5 mL pen injector Inject under the skin once a week Active hydrALAZINE (APRESOLINE) 25 mg tablet 5 Active Eliquis 5 mg tablet 5 Active famotidine (PEPCID) 20 mg tablet 5 Active Folplex 2.2 2.2-25-0.5 mg tablet 5 Active modafiniL (PROVIGIL) 200 mg tablet Take 1 tablet (200 mg total) by mouth daily 30 tablet 5 Active Additional Information Patient not taking.Reported on 08/16/2025 Active Problems Problem Noted Date Diagnosed Date Left bundle branch block 02/23/2025 Hypersomnia 11/09/2024 Obesity (BMI 30-39.9) 11/09/2024 Severe obstructive sleep apnea 09/08/2024 History of aortic valve repl acement with bioprosthetic valve 05/16/2017 Osteoporosis GERD (gastroesophageal reflux disease) Allergic rhinitis Trigeminal neuralgia Diabetes Hypertension Blindness of right eye Detached retina Osteoarthritis of left hip Acute bilateral low back pain with left-sided sc iatica Osteoarthritis of spine with radiculopathy, lumb ar region Lumbar radiculopathy Spondylosis of lumbosacral region Pain Encounters Date Type Department Care Team Description 08/16/2025 2:15 PM CDT Office Visit [facility] [address] [place] [phone] Symone Vidales MD Severe obstructive sleep apnea (Primary Dx); Hypersomnia; Obesity (BMI 30-39.9) from Last 3 Months Surgical History Surgery Date Site/Laterality Comments SINUS SURGERY REPLACEMENT TOTAL KNEE 10/21/2012 - 10/20/2013 Left TUBAL LIGATION BIOPROSTHETIC AORTIC VALVE REPLACEMENT 04/13/2014 LUMBAR FUSION 10/21/2005 - 10/20/2006 lumbar laminectomy and fusion RETINAL DETACHMENT SURGERY Right s/p multiple THYROIDECTOMY, PARTIAL 10/21/1975 - 10/20/1976 Medical History Medical History Date Comments Hypothyroidism Hypothyroidism Hx Other Medical DJD Hx Other Medical dyslipidemia Osteoporosis Osteoarthritis GERD (gastroesophageal reflux disease) Allergic rhinitis Trigeminal neuralgia Diabetes Hypertension PONV (postoperative nausea and vomiting) Blindness of right eye Detached retina Heart disease aortic valve replacment: 2013 Sinusitis sinus window surgery: 1979' Sleep apnea 2010's Family History Medical History Relation Name Comments Diabetes Mother Dorcas Rdz Heart failure Mother Dorcas Rdz Congestive Heart Failure; Hypertension Mother Dorcas Rdz Hypertension ; Transient ischemic attack Mother Dorcas Rdz TIA; Relation Name Status Comments Father (Age 83) Mother Dorcas Rdz (Age 85) Social History Tobacco Use Types Packs/Day Years Used Date Smoking Tobacco: Never Smokeless Tobacco: Never Tobacco Cessation:Counseling Given: Not Answered Alcohol Use Standard Drinks/Week Comments No 0 (1 standard drink = 0.6 oz pur e alcohol) Comments No Sex and Gender Information Value Date Recorded Sex Assigned at Not on file Legal Sex Female 1:58 AM CAREER CONSULTANT Gender Identity Not on file Sexual Orientation Not on file Last Filed Vital Signs Vital Sign Reading Time Taken Comments Blood Pressure 141/62 08/16/2025 1:50 PM CDT Pulse 64 08/16/2025 1:50 PM CDT Temperature 36.1 C (97 F) 11/03/2020 1:59 PM CAREER CONSULTANT Respiratory Rate 16 06/04/2018 10:4 8 AM CDT Oxygen Saturation 100% 08/16/2025 1:5 0 PM CDT Inhaled Oxygen Concentration - - Weight 76 kg (167 lb 8 oz) 08/16/2025 1 :50 PM CDT pt in W/C wt was taken at home Height 162.6 cm (5' 4.02) 08/16/2025 1 :50 PM CDT Body Mass Index 28.74 08/16/2025 1:50 PM CDT Plan of Treatment Health Maintenance Due Date Last Done Comments Albumin Creatinine Ratio, Urine 1945 Depression Screening 1945 Fall Risk Assessment 1945 Osteoporosis Screening-Bone Density Scan 1945 Dilated Eye Exam 1945 Foot Exam 1945 DTaP/Tdap/Td Vaccine (1 - Tdap) 1956 Hepatitis B Screening 1963 Well Visit 65+ 2010 Zoster Vaccine (2 of 3) 09/18/2015 07/24/2015 Hemoglobin A1C 08/09/2018 02/07/2018 eGFR 04/07/2019 04/07/2018, 03/21, 04/04/2018, Additional history exists Lipid Panel 07/29/2021 07/29/2020, 06/2020, 02/24/2019, Additional history exists Influenza Vaccine (#1) 2025 9, 07/16/2018, 07/15/2018, Additional history exists Pneumococcal vaccine 65+ Completed 11/24/2018, 02/20 Medical Devices Implanted Type Area Legislative Aide Device Identifier Shelf Expiration Date Model / Serial / Lot Shell Acetabular Tritanium E Hemispherical Od54 Mm Hip Primary Rim Cluster Hole - [id number] Implanted:Qty: 1 on 02/20/2018 by Ivan Stevens MD at [facility] Left: Hip [employer] [id number] 11/04/2022 502-03-54E / / [id number] Screw Bone Trident Secur-Fit Torx Titanium L30 Mm Od6.5 Mm Acetabular Sterile - [id number] Implanted:Qty: 1 on 02/20/2018 by Ivan Stevens MD at [facility] Left: Hip [employer] [id number] 11/24/202220292838-3981- / / [id number] Screw Bone Trident Titanium Hemisphere L50 Mm Od6.5 Mm Acetabular Cancellous - [id number] Implanted:Qty: 1 on 02/20/2018 by Ivan Stevens MD at [facility] Left: Hip [employer] [id number] 11/10/20227204-6327- / / [id number] Screw Bone Trident Titanium Hemisphere L45 Mm Od6.5 Mm Acetabular Cancellous - [id number] Implanted:Qty: 1 on 02/20/2018 by Ivan Stevens MD at [facility] Left: Hip [employer] [id number] 01/09/202220299639-8949- / / [id number] Liner Acetabular Mdm Cocr E Od42 Mm Hip 2 Mobility Modular - [id number] Implanted:Qty: 1 on 02/20/2018 by Ivan Stevens MD at [facility] Left: Hip [employer] [id number] 09/04/2022 [id number] / / [id number] Stem Femoral Accolade 127 D 5 Taper L108 Mm L35 Mm Hip Modular Sterile - [id number] Implanted:Qty: 1 on 02/20/2018 by Ivan Stevens MD at [facility] Left: Hip [employer] [id number] 12/02/2022 [id number] / / [id number] Head Femoral V40 Biolox Delta 0 Mm Offset Taper Od28 Mm Hip - [id number] Implanted:Qty: 1 on 02/20/2018 by Ivan Stevens MD at [facility] Left: Hip [employer] 08/23/2022 [id number] / / [id number] Insert Acetabular Adm Mobile Bearing Hip [employer] X3 Polyethylene H6.9 Mm Od42 Mm Odsec48 Mm Id28 Mm Hip - [id number] Implanted:Qty: 1 on 02/20/2018 by Ivan Stevens MD at [facility] Left: Hip [employer] 08/15/2022 1236-2-848 / / [id number] Procedures Procedure Name Priority Date/Time Associated Diagnosis Comments LIPID PANEL Routine 07/29/2020 EGFR Routine 04/07/2018 6:15 AM CDT HEMOGLOBIN A1C STAT 02/07/2018 12:00 PM CDT Preop testing from Last 3 Months or Most Recently Relevant to Health Maintenance Results * Lipid panel (07/29/2020) SCRIBED Cholesterol, Total 139 <200 [facility] SCRIB[facility] HDL 52 >40 [facility] SCRIBED LDL 70 <100 [facility] SCRIBED Triglycerides 89 <150 [facility] Blood specimen (specimen) us Historical Provider LAB BLOOD ORDERABLES Edit ed Result - Final Performing Organization Address [facility]/ZIP Co de Phone Number [facility] * eGFR (04/07/2018 6:15 AM CDT) eGFR 80 mL/min/1.7 3 m2 [facility] Comment: Interpretive Data Reference Interval Normal >/= 90 mL/min/1.73m2 Mildly decreased* 60 - 89 mL/min/1.73m2 Mildly to moderately decreased 45 - 59 mL/min/1.73m2 Moderately to severely decreased 30 - 44 mL/min/1.73m2 Severely decreased 15 - 29 mL/min/1.73m2 Kidney Failure < 15 mL/min/1.73m2 *Relative to young adult level If -Cameroonian multiply value by 1.16. Estimated glomerular filtration rate is determined by the CKD-EPI equation recommended by the National Kidney Foundation (KDIGO 2012 Clinical Practice Guideline for the Evaluation and Management of Chronic Kidney Disease. Kidney Intnl Suppl Oct 2012;3:1). The CKD-EPI equation should not be used for patients with unstable renal function and has not been validated in children and those over 70. Current interpretive data was last reviewed 2017. Blood specimen (specimen) 04/07/2018 6:15 AM CDT 04/07/2018 7:23 AM CDT Narrative [facility] - 04/07/2018 7:50 AM CDT Javier Rosales MD LAB BLOOD ORDERABLES F inal Result Performing Organization Address [facility] Co de Phone Number [facility] [address] [place] [address] * (ABNORMAL) Hemoglobin A1c (02/07/2018 12:00 PM CDT) Hgb A1C 6.8(H) 4.0 - 5.6 % [facility] Estimated Average Glucose 148 mg/dL [facility] Comment: The ADA recommends reporting an estimated Average Glucose (eAG) with all Hemoglobin A1c results using the equation derived from a study of 507 normal and diabetic adults. Minority populations were underrepresented and children were not included. (Diabetes Care 31:8107-0299, 2008). The eAG is not equivalent to a fasting glucose. Blood specimen (specimen) 02/07/2018 12:00 PM CDT 02/07/2018 12:00 PM CDT Ruby DONOVAN - 02/07/2018 1:19 PM CDT Zakia Serrano NP LAB BLOOD ORDERABLES Final Re sult [facility] [address] [place] [address] from Last 3 Months or Most Recently Relevant to Health Maintenance Insurance [employer] MEDICARE Advance Directives For more information, please contact: [phone] Documents on File Type Date Recorded Patient Coil Tester Expl anation ADVANCE DIRECTIVE 02/20/2018 7:07 AM ADVANCE DIRECTIVE 02/20/2018 Advance Di rective Checklist * Full Code (Latest Code Status on File) Date Activated Date Inactivated Comments 05/05/2018 9:14 PM * Full Code Date Activated Date Inactivated Comments 04/03/2018 11:55 PM 04/08/2018 3:19 PM * Full Code Date Activated Date Inactivated Comments 02/25/2018 8:48 AM 04/03/2018 4:40 PM * Full Code Date Activated Date Inactivated Comments 02/20/2018 1:32 PM 02/22/2018 2:05 PM Care Teams Hemodialysis Charge Nurse Relationship Specialty Start Date End Date Kareem Tomlin MD PCP - General 05/27/14
--- NOTE | 2025-08-23 11:22 | ECG_ITS ---
Test Date: 2025-08-23 12:21:41 Measurements Intervals Chapman Rate: 62 P: 26 [place]: 194 QRS: -40 QRSD: 146 T: 109 QT: 464 QTc: 475 Interpretive Statements SINUS RHYTHM LEFT AXIS DEVIATION [QRS AXIS < -30] LEFT BUNDLE BRANCH BLOCK [120+ ms QRS DURATION, 80+ ms Q/S IN V1/V2, 85+ ms R IN I/aVL/V5/V6] Compared to ECG 07/31/2024 10:15:13 No significant changes Electronically Signed On 08-23-2025 12:26:56 DIRECTOR RELIGIOUS EDUCATION by Sushil Uriarte M.D.
[2025-08-23 12:54] LABS: Hematocrit 34.0 % (37.0-47.0); Hemoglobin 11.0 g/dL (12.0-15.0); Immature Granulocyte Percent A 0.6 % (0-0.5); Lymphocytes Absolute Auto 1.10 K/mm3 (0.9-3.2); Mean Corpuscular HGB Conc 32.4 g/dl (32-36); Mean Corpuscular Hemoglobin 29.6 pg (26-34); Mean Corpuscular Volume 91.6 fl (80-100); Nucleated Red Blood Cells Absolute Auto 0.000 K/mm3 (0.0-0.012); Nucleated Red Blood Cells Perc 0.0 % (0.0-0.2); Platelet Count Result 214 k/mm3 (150-375); Red Blood Count 3.71 M/mm3 (4.2-5.4); White Blood Count 7.1 K/mm3 (4.5-10.0)
[2025-08-23 13:07] LABS: Alanine Aminotransferase 24 U/L (6-35); Albumin Level 4.4 g/dL (3.5-5.1); Alkaline Phosphatase 80 U/L (38-126); Anion Gap 7 mmol/L (4-12); Aspartate Amino Transferase 31 U/L (14-36); Bilirubin,Total 0.8 mg/dL (0.2-1.3); Blood Urea Nitrogen 18 mg/dL (7-17); Calcium 10.0 mg/dL (8.4-10.2); Carbon Dioxide 24 mmol/L (22-30); Chloride 98 mmol/L (98-107); Estimated Glomerular Filt Rate 47; Glucose 86 mg/dL (65-110); Potassium 4.0 mmol/L (3.4-5.0); Sodium 129 mmol/L (137-145); Total Protein 7.4 g/dL (6.3-8.2)
--- OUTSIDE RECORDS SUMMARY | 2025-08-23 13:10 | XMS_ITS | Clinical Summary ---
Author Organization [facility] [address] Address [address] [place] [address] Care Team Providers Care Post Tensioning Ironworker Helper Name Role Phone Kareem Tomlin MD Primary Care Provider [phone] Allergies Active Allergy Reactions Criticality Noted Date [...] by mouth daily Active vit A,C and U-kgokux-grvagl ls (OCCUVITE with LUTEIN) 1,000 unit-200 mg-60 unit-2 mg tablet Take 1 tablet by mouth daily Active thiamine (VITAMIN B-1) 100 mg tablet Take 1 tablet (100 mg total) by mouth daily Active multivitamin tablet Take 1 tablet by mouth daily Active ydorf-4-wrz-epa -dpa-fish oil 1,050-1,200 mg capsule Take 1 [...] 1 tablet (125 mcg total) by mouth patient admitting representative before breakfast Active clobetasoL (TEMOVATE) 0.05 % [...] Description 08/16/2025 2:15 PM CDT Office Visit [facility] [address] [place] [phone] Symone Vidales MD Severe obstructive sleep [...] on file Legal Sex Female 1:58 AM PROPERTY MANAGEMENT INTERN Gender Identity Not on file Sexual Orientation Not on file Last Filed Vital Signs Vital Sign Reading Time Taken Comments Blood Pressure 141/62 08/16/2025 1:50 PM CDT Pulse 64 08/16/2025 1:50 PM CDT Temperature 36.1 C (97 F) 11/03/2020 1:59 PM PROPERTY MANAGEMENT INTERN Respiratory Rate 16 06/04/2018 10:4 8 AM [...] 11/24/2018, 02/20 Medical Devices Implanted Type Area Sheet Finisher Device Identifier Shelf Expiration Date Model / Serial / Lot Shell Acetabular Tritanium E Hemispherical Od54 Mm Hip Primary Rim Cluster Hole - [id number] Implanted:Qty: 1 on 02/20/2018 by Ivan Stevens MD at [facility] Left: Hip [employer] [id number] 11/04/2022 502-03-54E / / [id number] Screw Bone Trident Secur-Fit Torx Titanium L30 Mm Od6.5 Mm Acetabular Sterile - [id number] Implanted:Qty: 1 on 02/20/2018 by Ivan Stevens MD at [facility] Left: Hip [employer] [facility] [id number] 11/24/202220299283-2373- / / [id number] Screw Bone Trident Titanium Hemisphere L50 Mm Od6.5 Mm Acetabular Cancellous - [id number] Implanted:Qty: 1 on 02/20/2018 by Ivan Stevens MD at [facility] Left: Hip [employer] [facility] [id number] 11/10/20223311-7990- / / [id number] Screw Bone Trident Titanium Hemisphere L45 Mm Od6.5 Mm Acetabular Cancellous - [id number] Implanted:Qty: 1 on 02/20/2018 by Ivan Stevens MD at [facility] Left: Hip [employer] [id number] 01/09/202220297772-0920- / / [id number] Liner Acetabular Mdm Cocr E Od42 Mm Hip 2 Mobility Modular - [id number] Implanted:Qty: 1 on 02/20/2018 by Ivan Stevens MD at [facility] Left: Hip [employer] [facility] [id number] 09/04/2022 [id number] / / [id number] Stem Femoral Accolade 127 D 5 Taper L108 Mm L35 Mm Hip Modular Sterile - [id number] Implanted:Qty: 1 on 02/20/2018 by Ivan Stevens MD at [facility] Left: Hip [employer] [facility] [id number] 12/02/2022 [id number] / / [id number] Head Femoral V40 Biolox Delta 0 Mm Offset Taper Od28 Mm Hip - [id number] Implanted:Qty: 1 on 02/20/2018 by Ivan Stevens MD at [facility] Left: Hip [employer] 08/23/2022 6570-0-128 / / [id number] Insert Acetabular Adm Mobile Bearing Hip [employer] X3 Polyethylene H6.9 Mm Od42 Mm Odsec48 Mm Id28 Mm Hip - [id number] Implanted:Qty: 1 on 02/20/2018 by Ivan Stevens MD at [facility] Left: Hip [employer] [facility] 08/15/2022 1236-2-848 / / [id number] Procedures Procedure Name Priority Date/Time Associated Diagnosis [...] ed Result - Final Performing Organization Address [facility]/ZIP Co de Phone Number [facility] * eGFR (04/07/2018 6:15 AM CDT) eGFR 80 mL/min/1.7 3 m2 [facility] Comment: Interpretive Data Reference Interval Normal >/= 90 mL/min/1.73m2 Mildly decreased* 60 - 89 mL/min/1.73m2 Mildly to moderately decreased 45 - 59 mL/min/1.73m2 Moderately to severely decreased 30 - 44 mL/min/1.73m2 Severely decreased 15 - 29 mL/min/1.73m2 Kidney Failure < 15 mL/min/1.73m2 *Relative to young adult level If -Kazakh multiply value by 1.16. Estimated glomerular filtration [...] AM CDT 04/07/2018 7:23 AM CDT Narrative [facility] - 04/07/2018 7:50 AM CDT Javier Rosales MD LAB BLOOD ORDERABLES F inal Result Performing Organization Address [facility] Co de Phone Number [facility] [address] Department [place] [address] * (ABNORMAL) Hemoglobin A1c (02/07/2018 12:00 PM CDT) Hgb A1C 6.8(H) 4.0 - 5.6 % [facility] Estimated Average Glucose 148 mg/dL [facility] Comment: The ADA recommends reporting an estimated Average Glucose (eAG) with all Hemoglobin A1c results using the equation derived from a study of 507 normal and diabetic adults. Minority populations were underrepresented and children were not included. (Diabetes Care 31:2509-1020, 2008). The eAG is not equivalent to a fasting glucose. Blood specimen (specimen) 02/07/2018 12:00 PM CDT 02/07/2018 12:00 PM CDT Ruby DONOVAN - 02/07/2018 1:19 PM CDT Zakia Serrano NP LAB BLOOD ORDERABLES Final Re sult [facility] [address] Department [place] [address] from Last 3 Months or Most Recently Relevant to Health Maintenance Insurance AETNA MEDICARE Advance Directives For more information, please contact: [phone] Documents on File Type Date Recorded Patient Jackscrew Man Expl anation ADVANCE DIRECTIVE 02/20/2018 7:07 AM [...] 1:32 PM 02/22/2018 2:05 PM Care Teams Post Tensioning Ironworker Helper Relationship Specialty Start Date End Date Kareem Tomlin MD PCP - General 05/27/14
--- OUTSIDE RECORDS SUMMARY | 2025-08-23 13:10 | XMS_ITS | Clinical Summary ---
Author Organization [facility] Address [address] [place] [id number] Care Team Providers Care Solar Designer/Installer Name Role Phone Kareem Tomlin MD Primary Care Provider Social History Tobacco Use Types Packs/Day Years [...] (2 of 3) 09/18/2015 07/24/2015 PHQ-2 (Physician [place]) 10/21/2024 COVID-19 Vaccine ( season) 2025 08/06/2023, [...] this topic Insurance AETNA MEDICARE Care Teams Solar Designer/Installer Relationship Specialty Start Date End Date Kareem Tomlin MD [address] [place] [address] PCP - General INTERNAL MEDICINE 04/13/24
--- NOTE | 2025-08-23 13:56 | ED.WEAKNESS ---
HPI - Weakness General Chief complaint: Weakness Stated complaint: weakness on left side. confused since yesterday Time Seen by Provider: 08/23/25 11:16 History of Present Illness HPI Narrative: Patient who has history of progressive worsening coordination generalized weakness requiring 24/ caregiver presenting here with several days of potentially worsening coordination issue. Her doctor wanted her to be checked out for electrolyte abnormality, possible CVA. Related Data Home Medications ?Medication ?Instructions ?Recorded ?Confirmed ?Last Taken ?Type Lactobacillus rhamnosus GG 10 1 cap PO DAILY 09/10/19 07/07/25 Unknown History billion cell capsule (Culturelle) aspirin 81 mg tablet,delayed 81 mg PO DAILY 09/10/19 07/07/25 Unknown History release (Aspir-Low) ysxnjtttbnj-xmwabhlfe-bbn C-Mn 500 1 cap PO BID 09/10/19 07/07/25 Unknown History mg-400 mg capsule vit C,E,copper,zinc-ixbky3x 250 1 cap PO DAILY 04/04/20 07/07/25 Unknown History mg-lutein 5 mg-zeaxanthin 1 mg capsule (Ocuvite Adult 50 Plus) multivitamin 1 tablet PO DAILY 04/27/20 07/07/25 Unknown History Vitamin E 400 IU 1 tablet PO DAILY 07/06/21 07/07/25 Unknown History acetaminophen 650 mg 650 mg PO BID PRN Pain 07/06/21 07/07/25 Unknown History tablet,extended release ascorbic acid (vitamin C) 500 mg 500 mg PO DAILY 07/06/21 07/07/25 Unknown History tablet calcium 600 mg (as 1 tablet PO BID 07/06/21 07/07/25 Unknown History carbonate)-vitamin D3 5 mcg (200 unit) tablet guaifenesin 1,200 mg tablet, 1,200 mg PO HS 07/06/21 07/07/25 Unknown History extended release 12 hr (Mucinex) magnesium 400mg-zinc 15mg 1 tablet PO .once daily 07/06/21 07/07/25 Unknown History cranberry fruit concentrate 450 mg 450 mg PO DAILY 09/08/24 07/07/25 Unknown History tablet Allergies Allergy/AdvReac Type Severity Reaction Status Date / Time azithromycin Allergy Unknown Nausea,Unkn Verified 08/23/25 10:16 own diclofenac Allergy Unknown STOMACH Verified 08/23/25 10:16 UPSET,Unknown erythromycin base Allergy Unknown Upset Verified 08/23/25 10:16 Stomach,Unknown oxycodone Allergy Unknown HALLUCINATI Verified 08/23/25 10:16 ONS azelastine AdvReac Mild Other Verified 08/23/25 10:16 hydrochlorothiazide AdvReac Unknown Hypotension Verified 08/23/25 10:16 [facility] Past Medical History Medical History BMI 31.0-31.9,adult BMI 33.0-33.9,adult BMI 35.0-35.9,adult DVT (deep venous thrombosis) Hospital discharge follow-up Chronic hyponatremia Hypothyroidism Obstructive sleep apnea on CPAP Left bundle branch block Type 2 diabetes mellitus Degenerative joint disease BMI 36.0-36.9,adult BMI 37.0-37.9, adult Anxiety and depression Osteoporosis BMI 38.0-38.9,adult Blindness of right eye Vitamin D deficiency Spinal stenosis Hearing loss Hyperlipidemia Chronic low back pain Benign essential hypertension 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 Surgical History Surgical History History of cataract extraction History of partial thyroidectomy History of detached retina repair History of aortic valve replacement with tissue graft History of left hip replacement History of total left knee replacement History of hand surgery History of back surgery History of sinus surgery Family History Family History Mother Diabetes mellitus Family history of arthritis Family history of congestive heart failure Hypertension Cerebrovascular accident Grandparent Family history of malignant neoplasm of breast Cerebrovascular accident Father Family history of malignant neoplasm of kidney Family history of arthritis Family history of lung cancer Grandparent Breast cancer Social History Social History Social History: Healthcare power of protein specialist: Sandor Rueda ([phone]). Code status: Full code. Smoking status: Never smoker Second hand tobacco smoke exposure: No Alcohol intake: never Substance use: never Do You Feel Safe in your Home?: Yes Lack of Transportation: No Lack of Food: Never True Current Housing: I Have Housing Concerned About Future Housing: No Difficulty Paying Gas/Electric Bills: No Difficulty Paying for Meds: No Currently Unemployed: No Education: High School Diploma/GED Difficulty w/ Childcare or Family Care: No Living arrangements: alone Additional living arrangements comments: Her of 55 years, Edward, in September 2023. She lives in her own home and has 24 hour caretakers. Occupation/Education: retired Spiritual care concerns: No Exam Narrative: EXAMINATION OF ORGAN SYSTEMS/BODY AREAS: Constitutional: Vital signs per nursing GENERAL:[No acute distress, non-toxic appearing.] HEAD: Normal with no signs of head trauma. EYES: Right eye blind, extraocular movement intact ENT: Hearing grossly intact LUNGS: Nonlabored breathing. HEART: [Regular rate and rhythm] ABD: [Soft], [nontender to palpation] EXT: Normal range of motion SKIN: [No rashes or lesions.] NEURO: [Alert and oriented x 3. Normal sensation bilateral face, arms, legs, unable to lift either leg up, which is normal for her, but she has normal strength to both arms without any drift, normal [id number] bilateral arms] PSYCH: Normal affect Course Vital Signs Vital signs: Vital Signs Temperature 97.2 F L 08/23/25 10:35 Pulse Rate 65 08/23/25 10:35 Respiratory Rate 15 08/23/25 10:35 Blood Pressure 179/66 H 08/23/25 10:35 Pulse Oximetry 100 08/23/25 10:35 Oxygen Delivery Room Air 08/23/25 10:35 Temperature 97.2 F L 08/23/25 10:35 Pulse Rate 66 08/23/25 11:30 Respiratory Rate 15 08/23/25 10:35 Blood Pressure 179/66 H 08/23/25 10:35 Pulse Oximetry 100 08/23/25 10:35 Oxygen Delivery Room Air 08/23/25 10:35 MDM - Weakness MDM Narrative Medical decision making narrative: 80F old female with history of coordination issues presents here with her biomass boiler operator noticing that she seems to have worse coordination than usual, having trouble even pulling her pants on. She has a biomass boiler operator 13/05 because she cannot transfer on her own and in my discussion with patient and family and biomass boiler operator at bedside, it does appear that her symptoms have been ongoing for years and she has even had to go to physical therapy in the past. On exam, her NIH stroke scale is a 2 for bilateral lower extremity weakness which per patient is chronic, has no neurologic focal deficits that would point at any sort of stroke causing her current symptoms. She does have low sodium here however this does appear to be around her baseline. 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 I discussed this with the patient and family member at bedside, did offer admission for neurologist, however patient would not be able to get an MRI here, and in discussion with family, patient is already on a blood thinner, she would prefer to go home and does not want to be admitted. They feel comfortable with outpatient management with follow-up to PCP, neurologist, with return precautions. Lab Data 08/23/25 12:39 08/23/25 12:39 Labs: Lab Results 08/23/25 Range/Units 12:39 WBC 7.1 (4.5-10.0) K/mm3 RBC 3.71 L (4.2-5.4) M/mm3 Hgb 11.0 L (12.0-15.0) g/dL Hct 34.0 L (37.0-47.0) % MCV 91.6 (80-100) fl MCH 29.6 (26-34) pg MCHC 32.4 (32-36) g/dl RDW 13.2 (11.5-14.5) % Plt Count 214 (150-375) k/mm3 MPV 9.5 (7.4-10.4) fl Immature Gran % (Auto) 0.6 H (0-0.5) % Neut % (Auto) 73.2 H (45.5-73.1) % Lymph % (Auto) 15.5 L (18.3-44.2) % [place] % (Auto) 8.7 H (2.6-8.5) % Eos % (Auto) 1.7 (0-4.4) % Baso % (Auto) 0.3 (0.2-1.2) % Lymph # (Auto) 1.10 (0.9-3.2) K/mm3 [place] # (Auto) 0.6 (0.1-0.6) K/mm3 Eos # (Auto) 0.1 (0-0.3) K/mm3 Baso # (Auto) 0.0 (0.0-0.1) K/mm3 Abs Immat Gran (auto) 0.04 H (0.00-0.031) K/mm3 Absolute Neuts (auto) 5.2 (1.3-6.7) K/mm3 Absolute Nucleated RBC 0.000 (0.0-0.012) K/mm3 Nucleated RBC % 0.0 (0.0-0.2) % Sodium 129 L (137-145) mmol/L Potassium 4.0 (3.4-5.0) mmol/L Chloride 98 (98-107) mmol/L Carbon Dioxide 24 (22-30) mmol/L Anion Gap 7 (4-12) mmol/L BUN 18 H (7-17) mg/dL Creatinine 1.11 H (0.7-1.0) mg/dL Estim Creat Clear Calc Not Reportable Estimated GFR 47 L (59 - ) Glucose 86 (65-110) mg/dL Calcium 10.0 (8.4-10.2) mg/dL Total Bilirubin 0.8 (0.2-1.3) mg/dL AST 31 (14-36) U/L ALT 24 (6-35) U/L Alkaline Phosphatase 80 (38-126) U/L Total Protein 7.4 (6.3-8.2) g/dL Albumin 4.4 (3.5-5.1) g/dL Discharge Plan Discharge Clinical Impression: Abnormal coordination Patient Disposition: Home Condition: Stable Instructions: Hyponatremia (ED), Fall Prevention for Older Adults (ED) Additional Instructions: Please follow up with your PCP and with the neurologist. You can always return to the ER for any further issues. Patient Language: Chinese Prescriptions: No Action aspirin [Aspir-Low] 81 mg tablet,delayed release (DR/EC) 81 mg PO DAILY Culturelle 10 billion cell capsule 1 cap PO DAILY zmlwxlitslz-oqljksyva-uha C-Mn 500-400 mg capsule 1 cap PO BID Ocuvite Adult 50 Plus 250-5-1 mg capsule 1 cap PO DAILY calcium carbonate-vitamin D3 600 mg(1,500mg) -200 unit tablet 1 tablet PO BID magnesium 400mg-zinc 15mg 1 tablet PO .once daily acetaminophen 650 mg tablet extended release 650 mg PO BID PRN (Reason: Pain) ascorbic acid (vitamin C) 500 mg tablet 500 mg PO DAILY Mucinex 1,200 mg tablet extended release 12hr 1,200 mg PO HS Vitamin E 400 IU 1 tablet PO DAILY (DME) lancets Misc See Rx Instructions .ROUTE .MEDSUPPLY Qty: 100 5RF Rx Instructions: As directed ([facility]) blood-glucose meter [Blood Glucose Monitoring] Kit See Rx Instructions .ROUTE .MEDSUPPLY Qty: 1 0RF Rx Instructions: Test blood suge once daily. multivitamin Tablet 1 tablet PO DAILY cranberry fruit concentrate 450 mg tablet 450 mg PO DAILY Rx Instructions: administer with a meal calcitonin (salmon) 200 unit/actuation spray,non-aerosol See Rx Instructions .ROUTE .COMPLEX Qty: 4 3RF Dose Instruction: USE 1 SPRAY INTO ONE NOSTRIL (ALTERNATE) DAILY Rx Instructions: USE 1 SPRAY INTO ONE NOSTRIL (ALTERNATE EACH DAY) HS [place] 0.1 % drops,suspension See Rx Instructions .ROUTE .COMPLEX Qty: 3 3RF Dose Instruction: INSTILL 1 DROP INTO AFFECTED EYE(S) TWICE DAILY Rx Instructions: INSTILL 1 DROP INTO AFFECTED EYE(S) TWICE DAILY famotidine 20 mg tablet See Rx Instructions .ROUTE .COMPLEX Qty: 180 0RF Dose Instruction: TAKE 1 TABLET BY MOUTH EVERY 12 HOURS Rx Instructions: TAKE 1 TABLET BY MOUTH EVERY 12 HOURS Mounjaro 5 mg/0.5 mL pen injector 5 mg subcut WEEKLY Qty: 2 3RF Rx Instructions: Please D/C the Mounjaro (Tirzepatide) 7.5. Thank you irbesartan 300 mg tablet 300 mg PO DAILY Qty: 90 1RF Rx Instructions: Please D/C script for Irbesartan 150mg. Thank you levothyroxine 125 mcg tablet See Rx Instructions .ROUTE .COMPLEX Qty: 90 1RF Dose Instruction: Take 1 tablet by mouth once daily Rx Instructions: Take 1 tablet by mouth once daily Tradjenta 5 mg tablet See Rx Instructions .ROUTE .COMPLEX Qty: 90 1RF Dose Instruction: TAKE 1 TABLET BY MOUTH ONCE DAILY IN THE MORNING Rx Instructions: TAKE 1 TABLET BY MOUTH ONCE DAILY IN THE MORNING ([facility]) OneTouch Ultra Test Strip See Rx Instructions .Route Qty: 50 0RF Rx Instructions: test once daily levocetirizine 5 mg tablet See Rx Instructions .ROUTE .COMPLEX Qty: 90 1RF Dose Instruction: Take 1 tablet by mouth once daily Rx Instructions: Take 1 tablet by mouth once daily fluticasone propionate 50 mcg/actuation spray,suspension See Rx Instructions .ROUTE .COMPLEX Qty: 48 2RF Dose Instruction: Use 2 spray(s) in each nostril once daily Rx Instructions: Use 2 spray(s) in each nostril HS furosemide 20 mg tablet 40 mg .ROUTE DAILY Qty: 180 0RF Rx Instructions: 40 mg daily; Folplex 2.2 2.2-25-0.5 mg tablet See Rx Instructions .ROUTE .COMPLEX Qty: 90 1RF Dose Instruction: Take 1 tablet by mouth once daily Rx Instructions: Take 1 tablet by mouth once daily atorvastatin 10 mg tablet See Rx Instructions .ROUTE .COMPLEX Qty: 90 1RF Dose Instruction: Take 1 tablet by mouth once daily Rx Instructions: Take 1 tablet by mouth HS Eliquis 5 mg tablet 5 mg PO BID Qty: 180 1RF hydralazine 25 mg tablet 25 mg PO TID Qty: 90 1RF Rx Instructions: Please D/C the Amlodipine 2.5. Thank you pregabalin 75 mg capsule 75 mg PO BID Qty: 60 0RF Follow-up/Referrals: Kareem Tomlin MD [Primary Care Provider, Internal Medicine] - 2 Days Walt Briones MD [Physician, Neurology] - 2 Days
== END 2025-08-23 15:04 | disposition home or self-care (01) ==
PROVIDERS: Emergency Provider Emergency Medicine; PCP Internal Medicine
DX: R27.8 Other lack of coordination (principal); Z86.718 Personal history of other venous thrombosis and embolism; E03.9 Hypothyroidism, unspecified; G47.30 Sleep apnea, unspecified; E11.9 Type 2 diabetes mellitus without complications; F41.9 Anxiety disorder, unspecified; F32.A Depression, unspecified; E78.5 Hyperlipidemia, unspecified; I10 Essential (primary) hypertension
CPT/HCPCS: 36415; 70496; 70498; 80053; 85025; 93005; 99284; Q9967